=== PATIENT | female | born 1935 | race Asian ===

== ENCOUNTER 2016-11-03 00:08 | Observation (INO) | payer OTHER ==
[2016-11-03 00:13] VITALS: BMI 18.6
--- NOTE | 2016-11-03 00:14 | PDOC ---
History of Present Illness - General Chief Complaint: Respiratory Stated Complaint: FEVER/POST OP Time Seen by Provider: 11/03/16 00:14 History Source: Patient Exam Limitations: No Limitations - History of Present Illness Initial Comments: 11/03/16 00:19 This is a 81-year-old female comes in with her family for evaluation. Patient is status post angioplasty today. Patient called her primary care doctor As she had a temperature of 99.6 and her family felt like her 1 foot was cool. Patient denied any pain. Patient denied any headache, nausea, chest pain, shortness of breath, abdominal pain, fevers, chills, nausea, vomiting, diarrhea or any other complaints. Patient denied any pain in her leg other than at the angioplasty site or in her foot. PAST MEDICAL HISTORY: Hypertension, high cholesterol, peripheral vascular disease PAST SURGICAL HISTORY: no significant history FAMILY HISTORY: no pertinant history SOCIAL HISTORY: Pt lives with family and is employed. MEDICATIONS: reviewed ALLERGIES: As per nursing notes Review of Systems General: + fevers npo chills, no weakness, no weight loss HEENT: No change in vision. No sore throat,. No ear pain CardioVascular: No chest pain or shortness of breath Respiratory:No cough, or wheezing. Gastrointestinal: no nausea, vomitting, diarrhea or constipation, No rectal bleeding Genitourinary: No dysuria, hematuria, or frequency Musculoskeletal: No joint or muscle pain or swelling Neurologic: No headache, vertigo, dizziness or loss of consciousness Psychiatric: nor depression Skin: No rashes or easy bruising Endocrine: no increased thirst or abnormal weight change Allergic: no skin or latex allergy All other systems reviewed and normal Exam: General: Well-nourished well-developed individual, no acute distress HEENT: Throat: Normal, tonsils normal, no erythema or exudate Neck: Supple, no meningeal signs, no lymphadenopathy Eyes::Pupils equal reactive and round, extraocular motion intact Chest: Nontender to palpation Cardiac: S1-S2 normal, regular rate and rhythm, no murmurs rubs or gallops Respiratory: Lungs clear to auscultation bilateral Abdomen: Soft, nondistended, normal bowel sounds, nontender to palpation diffusely Extremities: Warm, dry, no cyanosis, clubbing, or edema, pulses 2+ bilateral dorsalis pedis and foot is well perfused. Skin: No rashes Neuro: Alert and oriented x3, nonfocal exam, grossly intact, normal gait Psych: Normal mood and affect 11/03/16 02:07 Patient's workup patient's workup shows a urinary tract infection, hyponatremia with sodium 128 and hypokalemia with a potassium of 3.3. Patient will be admitted to an observation bed overnight. She has received a liter of fluid already Patient will be given potassium Her urinary tract infection will be treated with ceftriaxone first dose will be given here in the emergency room Patient will be admitted to a observation bed. Past History - Past Medical History Allergies/Adverse Reactions: Allergies Allergy/AdvReac Type Severity Reaction Status Date / Time No Known Allergies Allergy Unverified 09/25/12 11:26 Home Medications: Ambulatory Orders Aspirin 81 mg PO DAILY 05/21/14 Metformin HCl 500 mg PO BID 11/03/16 Simvastatin 40 mg PO DAILY 11/03/16 Diabetes: Yes HTN: Yes - Psycho/Social/Smoking Cessation Hx Anxiety: No Suicidal Ideation: No Smoking History: Never smoked Hx Alcohol Use: No Substance Use Type: None *Physical Exam - Vital Signs Last Vital Signs Temp Pulse Resp BP Pulse Ox 98.4 F 57 L 18 135/62 97 11/03/16 00:09 11/03/16 00:09 11/03/16 00:09 11/03/16 00:09 11/03/16 00:09 ED Treatment Course - LABORATORY CBC & Chemistry Diagram: 11/03/16 00:33 11/03/16 00:33 *DC/Admit/Observation/Transfer Diagnosis at time of Disposition: Hyponatremia, Hypokalemia, Cystitis - Discharge Dispostion Condition at time of disposition: Stable Admit: Yes
[2016-11-03 01:34] LABS: BASOPHIL 0.7 % (0-2.0); EOSINOPHIL 0.1 % (0-4.5); MCH 30.9 pg (25.7-33.7); MEAN CELL VOLUME 90.9 fl (80-96); MEAN PLT VOLUME 7.6 fl (7.5-11.1); NEUTROPHILS 86.1 % (42.8-82.8); PLATELET COUNT 223 K/MM3 (134-434); RDW 14.1 % (11.6-15.6); URINE APPEARANCE SLCLOUDY; URINE BILIRUBIN NEGATIVE (NEGATIVE); URINE BLOOD NEGATIVE (NEGATIVE); URINE COLOR YELLOW; URINE GLUCOSE (UA) 3+ (NEGATIVE); URINE KETONE TRACE (NEGATIVE); URINE NITRITE NEGATIVE (NEGATIVE); URINE PROTEIN NEGATIVE (NEGATIVE); URINE UROBILINOGEN NEGATIVE E.U./dl (0.2-1.0); WHITE BLOOD COUNT 9.9 K/mm3 (4.0-10.0)
[2016-11-03 01:45] LABS: URINE LEUK ESTERASE 3+ (NEGATIVE)
[2016-11-03 01:48] LABS: URINE HYALINE CAST 4 /lpf; URINE MUCUS RARE; URINE RBC 1 /hpf (0-3); URINE WBC 12 /hpf (3-5)
[2016-11-03 01:51] LABS: ALBUMIN 3.4 g/dl (3.4-5.0); ANION GAP 12 (8-16); CALCIUM 8.3 mg/dL (8.5-10.1); CO2 27 mmol/L (21-32); CREATININE 0.8 mg/dL (0.55-1.02); GLUCOSE,RANDOM 219 mg/dL (74-106); SGOT/AST 11 U/L (15-37); SGPT/ALT 17 U/L (12-78)
[2016-11-03 01:53] LABS: ALK PHOS 52 U/L (45-117); BILIRUBIN,TOTAL 0.9 mg/dL (0.2-1.0); TOT PROT 6.2 g/dl (6.4-8.2)
[2016-11-03] MEDS ORDERED: CEFTRIAXONE 1 GM in DEXTROSE 5%-WATER - 50 ML IVPB ONE (02:10)
[2016-11-03] MEDS ORDERED: POTASSIUM CHLORIDE TABS 20 MEQ TABLET.ER (FP) PO ONE ×3 (02:12→22:58)
[2016-11-03] MEDS ORDERED: cefTRIAXone SODIUM 1 GM VIAL ONE (02:15)
[2016-11-03] MEDS ORDERED: SODIUM CHLORIDE 1,000 ML IV SCH ×3 (04:45→19:18)
--- NOTE | 2016-11-03 09:38 | HP ---
CHIEF COMPLAINT: Fever PCP: HISTORY OF PRESENT ILLNESS: This is a 81 year old female with a history of NIDDM , HTN, HLD, and PAD s/p right femoral angioplasty yesterday in Dr. Mclean's office. She reports that yesterday evening, she had a temp of 103 at home and felt that her leg was cold. She denies cough, chest pain, abdominal pain, leg pain, rashes, or any other symptoms. ER course was notable for: (1) WBC within normal limits at 9.9, T normal at 98.4 (2) Mild hypokalemia (3.3) (3) Hyponatremia (128) (4) UA with 12 WBCs Recent Travel: None Social History: Lives with in [place] Smoking: Never smoker Alcohol: None Family History: Non-contributory to this admission Allergies No Known Allergies Allergy (Unverified 09/25/12 11:26) HOME MEDICATIONS: Home Medications Medication Instructions Recorded Aspirin 81 mg PO DAILY 05/21/14 Enoxaparin [Lovenox -] 60 mg SQ BID 11/03/16 Metformin HCl 500 mg PO BID 11/03/16 Simvastatin 40 mg PO DAILY 11/03/16 REVIEW OF SYSTEMS CONSTITUTIONAL: Absent: Fever yesterday, none overnight. No diaphoresis, generalized weakness, malaise, loss of appetite, weight change HEENT: Absent: rhinorrhea, nasal congestion, throat pain, throat swelling, difficulty swallowing, mouth swelling, ear pain, eye pain, visual changes CARDIOVASCULAR: Leg "cold" last night, feels normal today. Absent: chest pain, syncope, palpitations, irregular heart rate, lightheadedness , peripheral edema RESPIRATORY: Absent: cough, shortness of breath, dyspnea with exertion, orthopnea, wheezing, stridor, hemoptysis GASTROINTESTINAL: Absent: abdominal pain, abdominal distension, nausea, vomiting, diarrhea, constipation, melena, hematochezia GENITOURINARY: Absent: dysuria, frequency, urgency, hesitancy, hematuria, flank pain, genital pain MUSCULOSKELETAL: Absent: myalgia, arthralgia, joint swelling, back pain, neck pain SKIN: Absent: rash, itching, pallor HEMATOLOGIC/IMMUNOLOGIC: Absent: easy bleeding, easy bruising, lymphadenopathy, frequent infections ENDOCRINE: Absent: unexplained weight gain, unexplained weight loss, heat intolerance, cold intolerance NEUROLOGIC: Absent: headache, focal weakness or paresthesias, dizziness, unsteady gait, seizure, mental status changes, bladder or bowel incontinence PSYCHIATRIC: Absent: anxiety, depression, suicidal or homicidal ideation, hallucinations. PHYSICAL EXAMINATION Vital Signs - 24 hr 11/03/16 11/03/16 11/03/16 04:02 04:46 04:47 Temperature 98.4 F Pulse Rate 52 L 52 L Respiratory 18 18 18 Rate Blood Pressure 99/35 89/61 106/38 O2 Sat by Pulse 99 100 Oximetry (%) 11/03/16 11/03/16 11/03/16 05:46 05:57 08:57 Temperature 98.3 F 98.3 F Pulse Rate 49 L Respiratory 18 18 16 Rate Blood Pressure 97/38 97/38 O2 Sat by Pulse 100 99 99 Oximetry (%) GENERAL: Awake, alert, and fully oriented, in no acute distress. HEAD: Normal with no signs of trauma. EYES: Pupils equal, round and reactive to light, extraocular movements intact, sclera anicteric, conjunctiva clear. No lid lag. EARS, NOSE, THROAT: Ears normal, nares patent, oropharynx clear without exudates. Moist mucous membranes. NECK: Normal range of motion, supple without lymphadenopathy, JVD, or masses. LUNGS: Breath sounds equal, clear to auscultation bilaterally. No wheezes, and no crackles. No accessory muscle use. HEART: Regular rate and rhythm, normal S1 and S2 without murmur, rub or gallop. ABDOMEN: Soft, nontender, not distended, normoactive bowel sounds, no guarding, no rebound, no masses. No hepatomegaly or splenomegaly. MUSCULOSKELETAL: Normal range of motion at all joints. No bony deformities or tenderness. No CVA tenderness. UPPER EXTREMITIES: 2+ pulses, warm, well-perfused. No cyanosis. No clubbing. No peripheral edema. LOWER EXTREMITIES: 1+ DP/PT pulses, warm, well-perfused. No calf tenderness. No peripheral edema. NEUROLOGICAL: Cranial nerves II-XII intact. Normal speech. Normal gait. PSYCHIATRIC: Cooperative. Good eye contact. Appropriate mood and affect. SKIN: Warm, dry, normal turgor, no rashes or lesions noted, normal capillary refill. ASSESSMENT/PLAN: 81 year old female POD #1 s/p femoral angioplasty with one episode of fever. Problem List - Problem (1) Cystitis Assessment/Plan: -Given Ceftriaxone x 1 in ED, continue Keflex -Send and follow up urine culture Code(s): N30.90 - CYSTITIS, UNSPECIFIED WITHOUT HEMATURIA (2) Hyponatremia Assessment/Plan: -Asymptomatic -Appears hypovolemic/dry -Send urine electrolytes, serum osmolality -Given NS x 1L -Hold diuretic until can follow up with PCP -Repeat today Code(s): E87.1 - HYPO-OSMOLALITY AND HYPONATREMIA (3) Hypokalemia Assessment/Plan: -Repleted -Repeat today Code(s): E87.6 - HYPOKALEMIA (4) Hypertension Assessment/Plan: -BP and HR both low-borderline overnight; hold Losartan and Atenolol/ Chlorthalidone today Code(s): I10 - ESSENTIAL (PRIMARY) HYPERTENSION (5) Diabetes Assessment/Plan: -Resume Metformin -Diabetic diet Code(s): E11.9 - TYPE 2 DIABETES MELLITUS WITHOUT COMPLICATIONS (6) DVT prophylaxis Assessment/Plan: -On Lovenox 60mg sq bid as outpatient; continue this Code(s): [id number] - Visit type - Emergency Visit Emergency Visit: Yes ED Registration Date: 11/03/16 Care time: The patient presented to the Emergency Department on the above date and was hospitalized for further evaluation of their emergent condition. - New Patient This patient is new to me today: Yes Date on this admission: 11/03/16 - Critical Care Critical Care patient: No
[2016-11-03] MEDS: ENOXAPARIN NA (PORCINE) 60 MG/0.6 ML DISP.SYRIN SQ SCH ×2 (09:39→21:04)
[2016-11-03] MEDS: ASPIRIN 81 MG CHEWABLE TABLETS PO SCH (09:40)
[2016-11-03] MEDS: metFORMIN HCL 500 MG TABLET (FP) PO SCH ×2 (09:40→21:04)
[2016-11-03] MEDS ORDERED: CEPHALEXIN MONOHYDRATE 500 MG CAPSULE (UD) PO SCH (10:00)
[2016-11-03] MEDS ORDERED: PATIENT'S OWN MEDICATION (NON-FORMULARY) (Simvastatin [Simvastatin] 40 MG) PO SCH (10:00)
[2016-11-03 10:09] LABS: BASOPHIL 0.5 % (0-2.0); EOSINOPHIL 0.7 % (0-4.5); MCH 31.4 pg (25.7-33.7); MCHC 34.1 g/dl (32.0-36.0); MEAN PLT VOLUME 6.8 fl (7.5-11.1); NEUTROPHILS 80.3 % (42.8-82.8); PLATELET COUNT 239 K/MM3 (134-434); RDW 13.5 % (11.6-15.6); WHITE BLOOD COUNT 7.3 K/mm3 (4.0-10.8)
[2016-11-03 10:38] LABS: ANION GAP 7 (8-16); CALCIUM 8.3 mg/dl (8.4-10.2); CO2 24 mmol/L (22-28); CREATININE 0.7 mg/dl (0.6-1.3); GLUCOSE,RANDOM 201 mg/dl (74-106); MAGNESIUM 1.7 mg/dL (1.8-2.4)
[2016-11-03] MEDS ORDERED: MAGNESIUM SULF 50% (8.12 MEQ/2 ML-1 GM VIAL) IVPB ONE (11:17)
[2016-11-03] MEDS: CEFTRIAXONE 1 GM in DEXTROSE 5%-WATER - 50 ML IVPB SCH (15:24)
[2016-11-03 16:33] LABS: URINE CREATININE 22.8 mg/dL (20-320)
[2016-11-03 18:11] LABS: ANION GAP 6 (8-16); CALCIUM 8.1 mg/dl (8.4-10.2); CO2 27 mmol/L (22-28); CREATININE 0.7 mg/dl (0.6-1.3); GLUCOSE,RANDOM 175 mg/dl (74-106)
[2016-11-03 18:15] LABS: URIC ACID 3.2 mg/dl (2.6-7.2)
[2016-11-03] MEDS ORDERED: ATORVASTATIN CA 20 MG TABLET (FP) PO SCH (22:00)
[2016-11-04 06:20] VITALS: BP 112/78; PULSE 72; TEMP 98
--- NOTE | 2016-11-04 07:46 | CONSULT ---
Consult - text type - Consultation Consultation Note: Renal Consult for Hyponatremia This is a 81 year old woman with PMhx of PVD, Hypertension, DM Typ 2, Hyperlipidemia who presented with lower abd/leg pain s/p angioplasty and found to have Na of 128. Pt without any AMS, confusion, lethargy or seizures. Denies excesive water intake at home. Was on thazide like diuretic at home. No N/V/D. No cough or sob. Started on IVF w/o intial improvement. No fever, chills, dysuria. PMhx: as above Allergies: NKDA Family hx: NC Social hx: Non-smoker ROS: as per HPI, all other pertinent ros negative Home Meds: Home Medications Medication Instructions Recorded Aspirin 81 mg PO DAILY 05/21/14 Enoxaparin [Lovenox -] 60 mg SQ BID 11/03/16 Metformin HCl 500 mg PO BID 11/03/16 Simvastatin 40 mg PO DAILY 11/03/16 Vital Signs Temperature 98.0 F 11/04/16 06:00 Pulse Rate 72 11/04/16 06:00 Respiratory Rate 20 11/04/16 06:00 Blood Pressure 112/78 11/04/16 06:00 O2 Sat by Pulse Oximetry (%) 98 11/04/16 06:19 Intake & Output 11/01/16 11/02/16 11/03/16 11/04/16 23:59 23:59 23:59 23:59 Intake Total 3507 913 Balance 3507 913 Weight 104 lb 15.993 oz Gen: NAD, awake and alert HEENT: NC/AT, Dry MM, No JVD CVS: RRR, No M/R Lungs: CTA, no rales or wheeze Abd: soft NT/ND Ext: No edema, clubbin or cyanosis. + heatoma on right LQ/Hip Neuro: AAOx3, no focal defects CBC, BMP 11/03/16 10:02 11/03/16 17:30 Current Medications Aspirin (Asa -) 81 mg PO DAILY [facility] Last Admin: 11/03/16 09:40 Dose: 81 mg Atorvastatin Calcium (Lipitor -) 20 mg PO HS [facility] Last Admin: 11/03/16 21:04 Dose: 20 mg Enoxaparin Sodium (Lovenox -) 60 mg SQ BID [facility] Last Admin: 11/03/16 21:04 Dose: 60 mg Ceftriaxone Sodium 1 gm/ (Dextrose) 50 mls @ 100 mls/hr IVPB DAILY [facility] Last Admin: 11/03/16 15:24 Dose: 100 mls/hr Sodium Chloride (Normal Saline -) 1,000 mls @ 83 mls/hr IV ASDIR [facility] Last Admin: 11/03/16 19:30 Dose: 83 mls/hr Metformin HCl (Glucophage -) 500 mg PO BID [facility] Last Admin: 11/03/16 21:04 Dose: 500 mg A/P 81 year old woman with PMhx of PVD, Hypertension, DM Typ 2, Hyperlipidemia who presented with lower abd/leg pain s/p angioplasty and found to have Na of 128. #Hyponatremia in setting of thiazide like diuretic likely hypovolemic hyponatremia in setting of diuretic pt with delyed but good response to isotonic saline AM labs pending Urine studies ordered but not colleted continue isotonic saline for now if Serum Na > 132 ok to be discharged off Chlorthalidone should have repeat labs in 2-3 days as outpatient #PVD s/p angioplasty with hematoma right groin Management as per vascular Sx #Hypetension BP at goal currently off meds d/c Chlorthalidone on discharge #Hypokalememia am labs pending supplament to keep K > 3.5 #Anemia trend cbc no acute indication for transfusion cbc ordered for this am #Cystitis/UTI f/u cultures Abx as per primary team Thank you for this referral Sheldon Alston DO
[2016-11-04 08:19] LABS: MCHC 33.8 g/dl (32.0-36.0); MEAN CELL VOLUME 91.7 fl (80-96); MEAN PLT VOLUME 7.8 fl (7.5-11.1); PLATELET COUNT 197 K/MM3 (134-434); RDW 13.3 % (11.6-15.6); WHITE BLOOD COUNT 6.9 K/mm3 (4.0-10.8)
[2016-11-04 08:27] LABS: ANION GAP 6 (8-16); CO2 25 mmol/L (22-28); CREATININE 0.5 mg/dl (0.6-1.3); GLUCOSE,RANDOM 126 mg/dl (74-106)
[2016-11-04 09:11] LABS: MAGNESIUM 1.9 mg/dL (1.8-2.4)
[2016-11-04] MEDS ORDERED: POTASSIUM CHLORIDE TABS 20 MEQ TABLET.ER (FP) PO ONE (10:00)
--- NOTE | 2016-11-04 10:05 | DS ---
Physical Exam: SUBJECTIVE: Patient seen and examined OBJECTIVE: Vital Signs Period Temp Pulse Resp BP Sys/Sims Pulse Ox Last 24 Hr 98.0 F-99.5 F 60-80 16-20 98-122/36-78 97-98 PHYSICAL EXAM GENERAL: The patient is awake, alert, and fully oriented, in no acute distress. HEAD: Normal with no signs of trauma. EYES: PERRL, extraocular movements intact, sclera anicteric, conjunctiva clear. ENT: Ears normal, nares patent, oropharynx clear without exudates, moist mucous membranes. NECK: Trachea midline, full range of motion, supple. LUNGS: Breath sounds equal, clear to auscultation bilaterally, no wheezes, no crackles, no accessory muscle use. HEART: Regular rate and rhythm, S1, S2 without murmur, rub or gallop. ABDOMEN: Soft, nontender, nondistended, normoactive bowel sounds, no guarding, no rebound, no hepatosplenomegaly, no masses. EXTREMITIES: 2+ pulses, warm, well-perfused, no edema. NEUROLOGICAL: Cranial nerves II through XII grossly intact. Normal speech, gait not observed. PSYCH: Normal mood, normal affect. SKIN: Warm, dry, normal turgor, no rashes or lesions noted. LABS Laboratory Results - last 24 hr 11/03/16 11/03/16 11/03/16 10:02 10:02 15:50 WBC 7.3 D RBC 3.17 L D Hgb 9.9 L D Hct 29.2 L D MCV 92.0 MCHC 34.1 RDW 13.5 Plt Count 239 MPV 6.8 L D Neutrophils % 80.3 D Lymphocytes % 10.9 D Monocytes % 7.6 Eosinophils % 0.7 D Basophils % 0.5 Sodium 127 L Potassium 3.7 Chloride 96 L Carbon Dioxide 24 Anion Gap 7 L BUN 10 D Creatinine 0.7 POC Glucometer Random Glucose 201 H D Uric Acid Calcium 8.3 L Magnesium 1.7 L Urine Creatinine 22.8 11/03/16 11/03/16 11/03/16 17:30 17:30 21:00 WBC RBC Hgb Hct MCV MCHC RDW Plt Count MPV Neutrophils % Lymphocytes % Monocytes % Eosinophils % Basophils % Sodium 132 L Cancelled Potassium 3.3 L Chloride 99 Carbon Dioxide 27 Anion Gap 6 L BUN 9 Creatinine 0.7 POC Glucometer 152 Random Glucose 175 H Uric Acid 3.2 D Calcium 8.1 L Magnesium Urine Creatinine 11/04/16 11/04/16 06:30 06:30 WBC 6.9 RBC 2.93 L Hgb 9.1 L Hct 26.9 L MCV 91.7 MCHC 33.8 RDW 13.3 Plt Count 197 MPV 7.8 D Neutrophils % Lymphocytes % Monocytes % Eosinophils % Basophils % Sodium 134 L Potassium 4.1 D Chloride 103 Carbon Dioxide 25 Anion Gap 6 L BUN 8 Creatinine 0.5 L D POC Glucometer Random Glucose 126 H D Uric Acid Calcium 8.0 L Magnesium 1.9 Urine Creatinine HOSPITAL COURSE: Date of Admission:11/03/16 Date of Discharge: 11/04/16 Discharge Summary Reason For Visit: HYPONATREMIA/HYPOKALEMIA/CYSTITIS Current Active Problems Cystitis (Acute) Diabetes (Chronic) Hypertension (Chronic) Condition: Stable - Instructions Diet, Activity, Other Instructions: 1. Rest and stay well-hydrated. 2. Continue all of your prescribed medications, with the following changes" -Add Keflex for treatment of UTI -Do not take Atenolol-Chlorthalidone until seen by Dr. Cobian next week and told to re-start it 3. Return here for recurrent fevers or any other concerning symptoms. Referrals: Rui Cobian MD [Staff Physician] - Ritika Mclean MD [Staff Physician] - - Home Medications Comprehensive Discharge Medication List: Ambulatory Orders Aspirin 81 mg PO DAILY 05/21/14 Enoxaparin [Lovenox -] 60 mg SQ BID 11/03/16 Metformin HCl 500 mg PO BID 11/03/16 Simvastatin 40 mg PO DAILY 11/03/16 Cephalexin [Keflex] 500 mg PO BID #6 capsule 11/04/16 Problem List - Problems (1) Cystitis Code(s): N30.90 - CYSTITIS, UNSPECIFIED WITHOUT HEMATURIA (2) Hyponatremia Code(s): E87.1 - HYPO-OSMOLALITY AND HYPONATREMIA (3) Hypokalemia Code(s): E87.6 - HYPOKALEMIA (4) Hypertension Code(s): I10 - ESSENTIAL (PRIMARY) HYPERTENSION (5) Diabetes Code(s): E11.9 - TYPE 2 DIABETES MELLITUS WITHOUT COMPLICATIONS (6) DVT prophylaxis Code(s): [id number] -
[2016-11-04] MEDS: CEFTRIAXONE 1 GM in DEXTROSE 5%-WATER - 50 ML IVPB SCH (10:46)
[2016-11-04] MEDS: metFORMIN HCL 500 MG TABLET (FP) PO SCH (10:46)
[2016-11-04] MEDS: ASPIRIN 81 MG CHEWABLE TABLETS PO SCH (10:46)
[2016-11-04] MEDS: ENOXAPARIN NA (PORCINE) 60 MG/0.6 ML DISP.SYRIN SQ SCH (10:46)
== END 2016-11-04 11:15 | disposition home or self-care (01) ==
LOC: FER 00:08 → FM/S 03:22
PROVIDERS: ADMIT Internal Medicine; ATTEND Registered Nurse Emergency
PROC: 3E03329 Introduction of Other Anti-infective into Peripheral Vein, Percutaneous Approach (ICD-10-PCS; principal; 2016-11-03)
PROC: 3E033GC Introduction of Other Therapeutic Substance into Peripheral Vein, Percutaneous Approach (ICD-10-PCS; 2016-11-03)
PROC: 3E013GC Introduction of Other Therapeutic Substance into Subcutaneous Tissue, Percutaneous Approach (ICD-10-PCS; 2016-11-03)
DX: E87.1 Hypo-osmolality and hyponatremia (principal); E87.6 Hypokalemia; N30.90 Cystitis, unspecified without hematuria; I10 Essential (primary) hypertension; D64.9 Anemia, unspecified; E11.9 Type 2 diabetes mellitus without complications; E78.5 Hyperlipidemia, unspecified; I73.9 Peripheral vascular disease, unspecified; Z98.61 Coronary angioplasty status; Z79.82 Long term (current) use of aspirin; Z79.84 Long term (current) use of oral hypoglycemic drugs
CPT/HCPCS: 36415; 80048; 80053; 81003; 81015; 82533; 82570; 83735; 83930; 84443; 84550; 85025; 85027; 87040; 87086; 99285-25; G0378

== ENCOUNTER 2017-03-07 10:43 | Inpatient (IN) | payer OTHER ==
[2017-03-06 09:28] VITALS: BMI 17.9
[2017-03-07] MEDS ORDERED: LIDOCAINE HCL 0.5%, 5 MG/ML (50mL SDVIAL) ONE (12:11)
[2017-03-07] MEDS ORDERED: HEPARIN NA (PORCINE) 5,000 UNITS/ML 1ML VIAL ONE (12:11)
[2017-03-07] MEDS ORDERED: ceFAZolin SODIUM 1 GM VIAL ONE (12:12)
[2017-03-07] MEDS ORDERED: SUCCINYLCHOLINE CHLORIDE 200 MG/10 ML VIAL ONE (12:32)
[2017-03-07] MEDS ORDERED: PROPOFOL 20 ML ONE (12:32)
[2017-03-07] MEDS ORDERED: MIDAZOLAM HCL 2 MG/2 ML SINGLE DOSE VIAL ONE ×2 (12:32→15:00)
[2017-03-07] MEDS ORDERED: ROCURONIUM BROMIDE 50 MG/5 ML VIAL ONE (12:32)
[2017-03-07] MEDS ORDERED: DEXAMETHASONE SOD PHOSPHATE 4 MG/1 ML VIAL ONE (12:35)
[2017-03-07] MEDS ORDERED: PHENYLEPHRINE HCL 10 MG/1 ML SINGLE DOSE VIAL ONE (12:35)
[2017-03-07] MEDS ORDERED: ePHEDrine SULFATE 50 MG/1 ML AMPULE ONE (12:38)
[2017-03-07] MEDS ORDERED: SODIUM CHLORIDE 0.9% P/F 10 ML VIAL IJ ONE (12:39)
[2017-03-07] MEDS ORDERED: BUPIVACAINE HCL/PF 0.5% (5MG/ML) 10 ML VIAL ONE (14:00)
[2017-03-07] MEDS ORDERED: LIDOCAINE HCL 1%, 10 MG/ML (20ML VIAL) ONE (14:00)
[2017-03-07] MEDS ORDERED: ceFAZolin SODIUM 1 GM VIAL IVPB ONE (14:02)
[2017-03-07] MEDS ORDERED: BUPIVACAINE HCL/PF 0.5% (5MG/ML) 10 ML VIAL IJ ONE (14:07)
[2017-03-07] MEDS ORDERED: LIDOCAINE HCL 1%, 10 MG/ML (20ML VIAL) INF ONE ×2 (14:07)
[2017-03-07] MEDS ORDERED: BACITRACIN 50,000 UNITS VIAL NR ONE (14:23)
[2017-03-07] MEDS ORDERED: LACTATED RINGERS SOLUTION 1,000 ML IV SCH (16:15)
[2017-03-07] MEDS ORDERED: HYDROmorphone HCL CARPU-JECT 1 MG/1 ML DISP.SYRIN IVPB PRN (16:15)
--- NOTE | 2017-03-07 16:19 | HP ---
History & Physical Update - History History: No Change - Physical Physical: No Change - Assessment Assessment: No Change - Plan Plan: No Change
--- NOTE | 2017-03-07 16:21 | OP ---
Operative Note - Note: Operative Date: 03/07/17 Pre-Operative Diagnosis: RLE claudication, occluded SFA stent Operation: Right femoral-popliteal bypass, angiogram, popliteal angioplasty Implants: gortex graft Post-Operative Diagnosis: Same as Pre-op Surgeon: Ritika Mclean Training Engineer: Chelsea Vasquez Anesthesiologist/MOTORIZED SQUAD SERGEANT: Michael Mckee Anesthesia: MAC Estimated Blood Loss (mls): 100 Operative Report Dictated: Yes
[2017-03-07] MEDS ORDERED: ACETAMINOPHEN 325 MG TABLET (FP) PO PRN (16:59)
[2017-03-07] MEDS ORDERED: oxyCODONE HCL 5 MG TABLET PO PRN (16:59)
[2017-03-07 19:32] LABS: BASOPHIL 0.3 % (0-2.0); EOSINOPHIL 0.2 % (0-4.5); MCH 29.9 pg (25.7-33.7); MCHC 32.5 g/dl (32.0-36.0); MEAN CELL VOLUME 92.2 fl (80-96); MEAN PLT VOLUME 7.4 fl (7.5-11.1); NEUTROPHILS 87.6 % (42.8-82.8); PLATELET COUNT 300 K/MM3 (134-434); RDW 16.1 % (11.6-15.6); WHITE BLOOD COUNT 7.9 K/mm3 (4.0-10.0)
[2017-03-07] MEDS: INSULIN SLIDING SCALE (NOVOLOG) 1 VIAL SQ SCH ×2 (19:46→21:35)
[2017-03-07 19:55] LABS: TROPONIN I 0.14 ng/ml (0.00-0.05)
--- NOTE | 2017-03-07 20:54 | CONSULT ---
Consult Consult Specialty:: Pulm/CCM Reason for Consultation:: Rt leg claudication s/p Fem-Pop revision - History of Present Illness Chief Complaint: Rt LE discomfort History of Present Illness: 81yow with PMHx of NIDDM, HTN, HLD and PAD s/p multiple bilat femoral angioplasty procedures most recent Lt Fem-Pop who is admitted with RLE claudication 2/2 occluded RLE stents( 11/03) with plan for Rt Fem-Pop bypass. She is now admitted to ICU for post-op care Rec'd in ICU A+O x2 HR 70's, BP 142/60, O2 sat 100% on 2L NC. Rt groin dressing with sandbag weight, removed after 4hrs. Dressing with scant amt serosang rainage. Jake wrap dressing intact. Toes warm with faintly palpable DP pulse. She c/o of slight numbness in Lt foot but no c/o on right. - History Source History Provided By: Patient, Medical Record - Past Medical History Cardio/Vascular: Yes: HTN, Hyperlipdemia, Other (PAD) Endocrine: Yes: Diabetes Mellitus - Alcohol/Substance Use Hx Alcohol Use: No - Smoking History Smoking history: Never smoked - Social History Usual Living Arrangement: With Spouse ADL: Independent Home Medications - Allergies Allergies/Adverse Reactions: Allergies Allergy/AdvReac Type Severity Reaction Status Date / Time No Known Allergies Allergy Unverified 03/07/17 11:30 - Home Medications Home Medications: Ambulatory Orders Aspirin 81 mg PO DAILY 05/21/14 Metformin HCl 500 mg PO DAILY 11/03/16 Simvastatin 40 mg PO DAILY 11/03/16 Clopidogrel Bisulfate [Plavix -] 75 mg PO DAILY 03/07/17 Family Disease History - Family Disease History Family History: Unremarkable Review of Systems - Review of Systems Constitutional: reports: No Symptoms Cardiovascular: reports: Other (RLE claudication) Physical Exam Vital Signs: Vital Signs Temperature 97.5 F L 03/07/17 20:00 Pulse Rate 96 H 03/07/17 20:00 Respiratory Rate 18 03/07/17 20:37 Blood Pressure 140/78 03/07/17 20:00 O2 Sat by Pulse Oximetry (%) 100 03/07/17 20:37 Constitutional: Yes: No Distress, Calm, Thin Eyes: Yes: Other (Strabismus) HENT: Yes: WNL, Normocephalic Neck: Yes: WNL, Supple Cardiovascular: Yes: Regular Rate and Rhythm, S1, S2 Respiratory: Yes: Regular, On Nasal O2 Gastrointestinal: Yes: Normal Bowel Sounds, Soft Renal/: Yes: WNL Extremities: Yes: Other (Some mottling and bruising in LLE) Edema: LLE: Trace, RLE: Trace Integumentary: Yes: Bruising Wound/Incision: Yes: Clean/Dry, Dressing Dry and Intact, Other (Groin dressing and jake wrap in place) Neurological: Yes: Alert, Oriented ...Motor Strength: WNL Psychiatric: Yes: Alert, Oriented Labs: CBC, BMP 03/07/17 19:00 CBC,CMP WBC 7.9 K/mm3 (4.0-10.0) 03/07/17 19:00 RBC 3.32 M/mm3 (3.60-5.2) L 03/07/17 19:00 Hgb 9.9 GM/dL (10.7-15.3) L D 03/07/17 19:00 Hct 30.6 % (32.4-45.2) L 03/07/17 19:00 MCV 92.2 fl (80-96) 03/07/17 19:00 MCH 29.9 pg (25.7-33.7) 03/07/17 19:00 MCHC 32.5 g/dl (32.0-36.0) 03/07/17 19:00 RDW 16.1 % (11.6-15.6) H D 03/07/17 19:00 Plt Count 300 K/MM3 (134-434) D 03/07/17 19:00 MPV 7.4 fl (7.5-11.1) L 03/07/17 19:00 Neutrophils % 87.6 % (42.8-82.8) H 03/07/17 19:00 Lymphocytes % 9.7 % (8-40) D 03/07/17 19:00 Monocytes % 2.2 % (3.8-10.2) L 03/07/17 19:00 Eosinophils % 0.2 % (0-4.5) D 03/07/17 19:00 Basophils % 0.3 % (0-2.0) 03/07/17 19:00 POC Glucometer 145 UNITS (()) 03/07/17 17:48 Creatine Kinase 78 IU/L (26-192) 03/07/17 19:00 Troponin I 0.14 ng/ml (0.00-0.05) H 03/07/17 19:00 Current Medications Generic Name Dose Route Start Last Admin Trade Name Freq PRN Reason Stop Dose Admin Acetaminophen 325 mg 03/07/17 16:58 Tylenol - PO 03/10/17 16:57 Q4H PRN PAIN Acetaminophen 650 mg 03/07/17 16:59 Tylenol - PO Q6H PRN PAIN Atorvastatin Calcium 20 mg 03/07/17 22:00 Lipitor - PO HS [facility] Fentanyl 25 mcg 03/07/17 16:13 Sublimaze Injection - IVPUSH 03/10/17 16:14 [id number] PRN PAIN Hydromorphone HCl 1 mg 03/07/17 16:15 Dilaudid Injection - IVPB Q6H PRN SEVERE PAIN Lactated Ringer's 1,000 mls @ 100 mls/hr 03/07/17 16:15 03/07/17 18:00 Lactated Ringers Solution IV 0 mls ASDIR [facility] Administration Insulin Aspart 1 vial 03/07/17 16:30 03/07/17 19:46 Novolog Vial Sliding Scale - SQ Not Given ACHS [facility] Protocol Losartan Potassium 50 mg 03/08/17 07:00 Cozaar - PO AM [facility] Oxycodone HCl 5 mg 03/07/17 16:58 Roxicodone - PO Q4H PRN PAIN LEVEL 1-5 Oxycodone HCl 10 mg 03/07/17 16:59 Roxicodone - PO Q6H PRN PAIN LEVEL 6-10 Last Vital Signs Temp Pulse Resp BP Pulse Ox 97.5 F L 96 H 18 140/78 100 03/07/17 20:00 03/07/17 20:00 03/07/17 20:37 03/07/17 20:00 03/07/17 20:37 Problem List - Problems (1) Diabetes Code(s): E11.9 - TYPE 2 DIABETES MELLITUS WITHOUT COMPLICATIONS (2) Hypertension Code(s): I10 - ESSENTIAL (PRIMARY) HYPERTENSION (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 She is admitted to ICU for post-op care. Plan: -Post -op management as per surgical team -Bedrest -Pedal pulse check q2 -Monitor Rt groin site for bleeding/hematoma -HD monitor -Cont antihypertensives and statins -Restart aspirin and Lovenox as per surgical team -Insulin sliding scale -Pain meds prn -Advance diet as armando Tisha Baca, ACNP 35mins
[2017-03-07] MEDS: ATORVASTATIN CA 20 MG TABLET (FP) PO SCH (21:33)
[2017-03-07] MEDS: oxyCODONE HCL 5 MG TABLET PO PRN (23:59)
[2017-03-08 06:02] LABS: BASOPHIL 0.3 % (0-2.0); EOSINOPHIL 0.1 % (0-4.5); MCH 29.8 pg (25.7-33.7); MEAN CELL VOLUME 87.7 fl (80-96); MEAN PLT VOLUME 7.4 fl (7.5-11.1); NEUTROPHILS 78.9 % (42.8-82.8); PLATELET COUNT 304 K/MM3 (134-434); RDW 15.5 % (11.6-15.6); WHITE BLOOD COUNT 7.8 K/mm3 (4.0-10.0)
[2017-03-08] MEDS: INSULIN SLIDING SCALE (NOVOLOG) 1 VIAL SQ SCH ×4 (06:34→21:36)
[2017-03-08] MEDS: LOSARTAN POTASSIUM 50 MG TABLET (FP) PO SCH (06:37)
[2017-03-08 06:48] LABS: ALBUMIN 2.7 g/dl (3.4-5.0); ALK PHOS 54 U/L (45-117); ANION GAP 7 (8-16); BILIRUBIN,TOTAL 1.1 mg/dL (0.2-1.0); CO2 27 mmol/L (21-32); CREATININE 0.5 mg/dL (0.55-1.02); GLUCOSE,RANDOM 114 mg/dL (74-106); SGOT/AST 7 U/L (15-37); SGPT/ALT 13 U/L (12-78); TOT PROT 5.4 g/dl (6.4-8.2)
[2017-03-08] MEDS ORDERED: PT OWN MED DRAWER 7, Y5N ONE (10:08)
--- NOTE | 2017-03-08 10:13 | PN ---
Progress Note, Physician History of Present Illness: Reports dizziness which started this morning. Also reports numbness in left foot which started this morning. Denies pain in surgical leg. Denies CP, SOB, abd pain, N/V. Eating breakfast. - Current Medication List Current Medications: Active Medications Acetaminophen (Tylenol -) 325 mg PO Q4H PRN PRN Reason: PAIN Stop: 03/10/17 16:57 Acetaminophen (Tylenol -) 650 mg PO Q6H PRN PRN Reason: PAIN Atorvastatin Calcium (Lipitor -) 20 mg PO HS [facility] Last Admin: 03/07/17 21:33 Dose: 20 mg Fentanyl (Sublimaze Injection -) 25 mcg IVPUSH [id number] PRN PRN Reason: PAIN Stop: 03/10/17 16:14 Hydromorphone HCl (Dilaudid Injection -) 1 mg IVPB Q6H PRN PRN Reason: SEVERE PAIN Lactated Ringer's (Lactated Ringers Solution) 1,000 mls @ 100 mls/hr IV ASDIR [facility] Last Admin: 03/07/17 18:00 Dose: 0 mls Insulin Aspart (Novolog Vial Sliding Scale -) 1 vial SQ ACHS [facility] PRN Reason: Protocol Last Admin: 03/08/17 06:34 Dose: Not Given Losartan Potassium (Cozaar -) 50 mg PO AM [facility] Last Admin: 03/08/17 06:37 Dose: 50 mg Oxycodone HCl (Roxicodone -) 5 mg PO Q4H PRN PRN Reason: PAIN LEVEL 1-5 Last Admin: 03/07/17 23:59 Dose: 5 mg Oxycodone HCl (Roxicodone -) 10 mg PO Q6H PRN PRN Reason: PAIN LEVEL 6-10 - Objective Vital Signs: Vital Signs Temperature 97.8 F 03/08/17 02:00 Pulse Rate 83 03/08/17 08:00 Respiratory Rate 20 03/08/17 08:00 Blood Pressure 133/57 03/08/17 08:00 O2 Sat by Pulse Oximetry (%) 100 03/07/17 20:37 Constitutional: Yes: No Distress, Calm Neck: Yes: Supple Cardiovascular: Yes: Regular Rate and Rhythm Respiratory: Yes: CTA Bilaterally Gastrointestinal: Yes: Normal Bowel Sounds, Soft Extremities: Yes: Other (RLE: dressings w/ mild serosanguinous drainage, no hematoma or edema, 2+ PT pulse, foot warm LLE: (+) ecchymosis along leg and foot , (+) DP/Pt doppler signals, foot warm, no sensorimotor deficits) Labs: CBC, BMP 03/08/17 05:00 03/08/17 05:00 Assessment/Plan PAD w/ severe claudication One day s/p Rt leg fem-pop bypass. Vascular check q4h. PT eval. OOB with assistance. Weight bearing as tolerated. Acute blood loss anemia: H&H dropped from 9.9/30.6 to 8.1/23.9. Complains of dizziness. Vitals stable. Most likely due to intra-operative blood loss. No evidence of bleeding post-op. Will order 1 unit PRBC. DM II: Accuchecks. Insulin sliding scale. HTN: Continue home meds. HLD: Continue home meds. DVT ppx: SCD b/l. Will hold off on restarting antiplatelets and lovenox until H& H trends up. GI ppx: Protonix.
[2017-03-08] MEDS ORDERED: LACTATED RINGERS SOLUTION 1,000 ML IV SCH (10:21)
[2017-03-08] MEDS ORDERED: PANTOPRAZOLE 40 MG TABLET (FP) PO ONE (11:00)
--- NOTE | 2017-03-08 11:09 | PN ---
Teaching Attending Note Name of Resident: Vinny Valverde ATTENDING PHYSICIAN STATEMENT I saw and evaluated the patient. I reviewed the resident's note and discussed the case with the resident. I agree with the resident's findings and plan as documented. SUBJECTIVE: Patient seen and examined in the ICU. Awake and alert. Pain in LE is controlled. Noted anemia. No obvious bleeding. No CP or SOB. Currently on no antiplatelet or AC. Intake & Output 03/05/17 03/06/17 03/07/17 03/08/17 23:59 23:59 23:59 23:59 Intake Total 2750 1200 Output Total 1900 800 Balance 850 400 Weight 92 lb 92 lb 104 lb Last Vital Signs Temp Pulse Resp BP Pulse Ox 98.5 F 76 19 131/42 100 03/08/17 10:00 03/08/17 10:41 03/08/17 10:00 03/08/17 10:00 03/08/17 10:41 Active Medications Acetaminophen (Tylenol -) 325 mg PO Q4H PRN PRN Reason: PAIN Stop: 03/10/17 16:57 Acetaminophen (Tylenol -) 650 mg PO Q6H PRN PRN Reason: PAIN Atorvastatin Calcium (Lipitor -) 20 mg PO HS [facility] Last Admin: 03/07/17 21:33 Dose: 20 mg Fentanyl (Sublimaze Injection -) 25 mcg IVPUSH [id number] PRN PRN Reason: PAIN Stop: 03/10/17 16:14 Hydromorphone HCl (Dilaudid Injection -) 1 mg IVPB Q6H PRN PRN Reason: SEVERE PAIN Lactated Ringer's (Lactated Ringers Solution) 1,000 mls @ 75 mls/hr IV ASDIR [facility] Insulin Aspart (Novolog Vial Sliding Scale -) 1 vial SQ ACHS [facility] PRN Reason: Protocol Last Admin: 03/08/17 06:34 Dose: Not Given Losartan Potassium (Cozaar -) 50 mg PO AM [facility] Last Admin: 03/08/17 06:37 Dose: 50 mg Oxycodone HCl (Roxicodone -) 5 mg PO Q4H PRN PRN Reason: PAIN LEVEL 1-5 Last Admin: 03/07/17 23:59 Dose: 5 mg Oxycodone HCl (Roxicodone -) 10 mg PO Q6H PRN PRN Reason: PAIN LEVEL 6-10 Pantoprazole Sodium (Protonix -) 40 mg PO DAILY [facility] Constitutional: Yes: No Distress, Awake and alert Eyes: Yes: Other (Strabismus) HENT: Yes: WNL, Normocephalic Neck: Yes: WNL, Supple Cardiovascular: Yes: Regular Rate and Rhythm, S1, S2 Respiratory: Yes: Regular, On Nasal O2 Gastrointestinal: Yes: Normal Bowel Sounds, Soft Renal/: Yes: WNL Extremities: Yes: Other (Some bruising in LLE) Edema: LLE: Trace, RLE: Trace Integumentary: Yes: Bruising Wound/Incision: Yes: Clean/Dry, Dressing Dry and Intact, Other (Groin dressing and ludy wrap in place) Neurological: Yes: Alert, Oriented ...Motor Strength: WNL Psychiatric: Yes: Alert, Oriented Labs: Laboratory Results - last 24 hr 03/07/17 03/07/17 03/07/17 10:56 10:56 12:03 WBC RBC Hgb Hct MCV MCH MCHC RDW Plt Count MPV Neutrophils % Lymphocytes % Monocytes % Eosinophils % Basophils % Sodium Potassium Chloride Carbon Dioxide Anion Gap BUN Creatinine Creat Clearance w eGFR POC Glucometer 147 Random Glucose Calcium Total Bilirubin AST ALT Alkaline Phosphatase Creatine Kinase Troponin I Total Protein Albumin Blood Type B POSITIVE B POSITIVE Antibody Screen Negative Crossmatch See Detail Crossmatch IS Only See Detail 03/07/17 03/07/17 03/07/17 17:48 19:00 19:00 WBC 7.9 RBC 3.32 L Hgb 9.9 L D Hct 30.6 L MCV 92.2 MCH 29.9 MCHC 32.5 RDW 16.1 H D Plt Count 300 D MPV 7.4 L Neutrophils % 87.6 H Lymphocytes % 9.7 D Monocytes % 2.2 L Eosinophils % 0.2 D Basophils % 0.3 Sodium Potassium Chloride Carbon Dioxide Anion Gap BUN Creatinine Creat Clearance w eGFR POC Glucometer 145 Random Glucose Calcium Total Bilirubin AST ALT Alkaline Phosphatase Creatine Kinase 78 Troponin I 0.14 H Total Protein Albumin Blood Type Antibody Screen Crossmatch Crossmatch IS Only 03/07/17 03/08/17 03/08/17 21:33 05:00 05:00 WBC 7.8 RBC 2.72 L Hgb 8.1 L D Hct 23.9 L D MCV 87.7 MCH 29.8 MCHC 34.0 RDW 15.5 Plt Count 304 MPV 7.4 L Neutrophils % 78.9 Lymphocytes % 11.6 Monocytes % 9.1 D Eosinophils % 0.1 Basophils % 0.3 Sodium 142 D Potassium 4.8 D Chloride 108 H D Carbon Dioxide 27 Anion Gap 7 L BUN 12 Creatinine 0.5 L D Creat Clearance w eGFR > 60 POC Glucometer [phone] Random Glucose 114 H D Calcium 8.0 L Total Bilirubin 1.1 H D AST 7 L D ALT 13 D Alkaline Phosphatase 54 Creatine Kinase Troponin I Total Protein 5.4 L Albumin 2.7 L D Blood Type Antibody Screen Crossmatch Crossmatch IS Only 03/08/17 03/08/17 05:00 05:15 WBC RBC Hgb Hct MCV MCH MCHC RDW Plt Count MPV Neutrophils % Lymphocytes % Monocytes % Eosinophils % Basophils % Sodium Potassium Chloride Carbon Dioxide Anion Gap BUN Creatinine Creat Clearance w eGFR POC Glucometer [phone] Random Glucose Calcium Total Bilirubin AST ALT Alkaline Phosphatase Creatine Kinase Troponin I 0.16 H Total Protein Albumin Blood Type Antibody Screen Crossmatch Crossmatch IS Only Problem List - Problems (1) Diabetes Code(s): E11.9 - TYPE 2 DIABETES MELLITUS WITHOUT COMPLICATIONS (2) Hypertension Code(s): I10 - ESSENTIAL (PRIMARY) HYPERTENSION (3) 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
--- NOTE | 2017-03-08 12:32 | PN ---
Progress Note (short form) - Note Progress Note: Anesthesia POD#1 S/P FEm-Pop Bypass under MAC VSS,food is advanced,no N/V,pain is under control No anesthetic complications seen. Kimberly Gandara MD.
--- NOTE | 2017-03-08 12:46 | CONSULT ---
Consultation: REQUESTING PROVIDER: HISTORY OF PRESENT ILLNESS: 81 yo F with h/o of HTN, HLD, NIDDM, and PAD s/p multiple BL femoral angioplasty procedures with recent L femoral popliteal angioplasty who initially presented with claudication of RLE d/t occluded RLE stents (11/03). She is post op day #1 R femoral popliteal bypass here in ICU for post op monitoring and care. No acute events overnight. On presentation this AM sitting comfortably in bed eating breakfast. No complaints or concerns this AM. Endorses LLE numbness/ tingling of two days duration. Denies fevers/chills, chest pain, sob, lightheadedness, N/V, abdominal pain, constipation, diarrhea. Patient afebrile , and hemodynamically stable on 2 L NC. Rt groin dressing is in place c/d/i with no obvious signs of bleeding, infection, or hematoma formation. Jake wrap present over right lower ext. Pt. with BL LE doppler pulses with no overlying skin changes. Pain well controlled with Oxycodone, Fentanyl, and Tylenol. REVIEW OF SYSTEMS: CONSTITUTIONAL: Absent: fever, chills, diaphoresis, generalized weakness, malaise, loss of appetite, weight change HEENT: Absent: rhinorrhea, nasal congestion, throat pain, throat swelling, difficulty swallowing, mouth swelling, ear pain, eye pain, visual changes CARDIOVASCULAR: + Periperhal edema. Absent: chest pain, syncope, palpitations, irregular heart rate, lightheadedness RESPIRATORY: Absent: cough, shortness of breath, dyspnea with exertion, orthopnea, wheezing, stridor, hemoptysis GASTROINTESTINAL: Absent: abdominal pain, abdominal distension, nausea, vomiting, diarrhea, constipation, melena, hematochezia GENITOURINARY: Absent: dysuria, frequency, urgency, hesitancy, hematuria, flank pain, genital pain MUSCULOSKELETAL: Absent: myalgia, arthralgia, joint swelling, back pain, neck pain SKIN: Absent: rash, itching, pallor HEMATOLOGIC/IMMUNOLOGIC: Absent: easy bleeding, easy bruising, lymphadenopathy, frequent infections ENDOCRINE: Absent: unexplained weight gain, unexplained weight loss, heat intolerance, cold intolerance NEUROLOGIC: + Parasthesias. Absent: headache, focal weakness, dizziness, unsteady gait, seizure, mental status changes, bladder or bowel incontinence PSYCHIATRIC: Absent: anxiety, depression, suicidal or homicidal ideation, hallucinations. PHYSICAL EXAMINATION Vital Signs - 24 hr 03/07/17 03/07/17 03/07/17 16:07 16:20 16:35 Temperature 98.0 F Pulse Rate 68 70 68 Respiratory 12 16 16 Rate Blood Pressure 137/53 145/61 141/61 O2 Sat by Pulse 97 100 100 Oximetry (%) 03/07/17 03/07/17 03/07/17 16:50 17:05 17:20 Temperature Pulse Rate 67 70 62 Respiratory 14 14 16 Rate Blood Pressure 155/62 165/66 164/62 O2 Sat by Pulse 100 100 100 Oximetry (%) 03/07/17 03/07/17 03/07/17 17:35 17:50 18:10 Temperature 98.2 F Pulse Rate 72 70 72 Respiratory 16 14 16 Rate Blood Pressure 161/64 160/59 162/70 O2 Sat by Pulse 100 100 Oximetry (%) 03/07/17 03/07/17 03/07/17 18:31 18:35 20:00 Temperature 98 F 97.5 F L Pulse Rate 66 96 H Respiratory 18 18 Rate Blood Pressure 150/60 140/78 O2 Sat by Pulse 100 Oximetry (%) 03/07/17 03/07/17 03/08/17 20:37 22:00 00:11 Temperature 97.5 F L Pulse Rate 76 66 Respiratory 18 20 15 Rate Blood Pressure 128/52 106/59 O2 Sat by Pulse 100 Oximetry (%) 03/08/17 03/08/17 03/08/17 02:00 06:00 08:00 Temperature 97.8 F Pulse Rate 67 67 83 Respiratory 17 13 20 Rate Blood Pressure 132/57 124/95 133/57 O2 Sat by Pulse Oximetry (%) 03/08/17 03/08/17 03/08/17 10:00 10:41 12:36 Temperature 98.5 F Pulse Rate 66 76 71 Respiratory 19 21 Rate Blood Pressure 131/42 115/51 O2 Sat by Pulse 100 100 Oximetry (%) GENERAL: Awake, alert, and fully oriented, in no acute distress. HEAD: Normal with no signs of trauma. EYES: Pupils equal, round and reactive to light, sclera anicteric, conjunctiva clear. EARS, NOSE, THROAT: Ears normal, nares patent, oropharynx clear without exudates. Moist mucous membranes. NECK: Normal range of motion, supple without lymphadenopathy, JVD, or masses. LUNGS: Breath sounds equal, clear to auscultation bilaterally. No wheezes, and no crackles. No accessory muscle use. HEART: Regular rate and rhythm, normal S1 and S2 without murmur, rub or gallop. ABDOMEN: Soft, nontender, not distended, normoactive bowel sounds, no guarding, no rebound, no masses. No hepatomegaly or splenomegaly. UPPER EXTREMITIES: 2+ pulses, warm, well-perfused. No cyanosis. No clubbing. Cap refill <2 seconds.No peripheral edema LOWER EXTREMITIES:R sided groin dressing in place c/d/i. Absent evidence of drainage and hematoma formation. Absent evidence of active bleeding. Jake wrap bandage present over right LE. LE 1+ pitting edema. Posterior tibial and dorsal pedal pulses faintly palpable. + Symmetric Doppler of BL Pedal pulses. No calf tenderness. BL LE proprioception intact. Absent overlying skin changes, redness, or warmth. Well perfused. NEUROLOGICAL: Gait not assessed. Normal speech. PSYCHIATRIC: Cooperative. Good eye contact. Appropriate mood and affect. SKIN: Warm, dry, normal turgor, no rashes or lesions noted. Laboratory Results - last 24 hr 03/07/17 03/07/17 03/07/17 10:56 10:56 12:03 WBC RBC Hgb Hct MCV MCH MCHC RDW Plt Count MPV Neutrophils % Lymphocytes % Monocytes % Eosinophils % Basophils % Sodium Potassium Chloride Carbon Dioxide Anion Gap BUN Creatinine Creat Clearance w eGFR POC Glucometer 147 Random Glucose Calcium Total Bilirubin AST ALT Alkaline Phosphatase Creatine Kinase Troponin I Total Protein Albumin Blood Type B POSITIVE B POSITIVE Antibody Screen Negative Crossmatch See Detail See Detail Crossmatch IS Only See Detail 03/07/17 03/07/17 03/07/17 17:48 19:00 19:00 WBC 7.9 RBC 3.32 L Hgb 9.9 L D Hct 30.6 L MCV 92.2 MCH 29.9 MCHC 32.5 RDW 16.1 H D Plt Count 300 D MPV 7.4 L Neutrophils % 87.6 H Lymphocytes % 9.7 D Monocytes % 2.2 L Eosinophils % 0.2 D Basophils % 0.3 Sodium Potassium Chloride Carbon Dioxide Anion Gap BUN Creatinine Creat Clearance w eGFR POC Glucometer 145 Random Glucose Calcium Total Bilirubin AST ALT Alkaline Phosphatase Creatine Kinase 78 Troponin I 0.14 H Total Protein Albumin Blood Type Antibody Screen Crossmatch Crossmatch IS Only 03/07/17 03/08/17 03/08/17 21:33 05:00 05:00 WBC 7.8 RBC 2.72 L Hgb 8.1 L D Hct 23.9 L D MCV 87.7 MCH 29.8 MCHC 34.0 RDW 15.5 Plt Count 304 MPV 7.4 L Neutrophils % 78.9 Lymphocytes % 11.6 Monocytes % 9.1 D Eosinophils % 0.1 Basophils % 0.3 Sodium 142 D Potassium 4.8 D Chloride 108 H D Carbon Dioxide 27 Anion Gap 7 L BUN 12 Creatinine 0.5 L D Creat Clearance w eGFR > 60 POC Glucometer 274.18678 Random Glucose 114 H D Calcium 8.0 L Total Bilirubin 1.1 H D AST 7 L D ALT 13 D Alkaline Phosphatase 54 Creatine Kinase Troponin I Total Protein 5.4 L Albumin 2.7 L D Blood Type Antibody Screen Crossmatch Crossmatch IS Only 03/08/17 03/08/17 05:00 05:15 WBC RBC Hgb Hct MCV MCH MCHC RDW Plt Count MPV Neutrophils % Lymphocytes % Monocytes % Eosinophils % Basophils % Sodium Potassium Chloride Carbon Dioxide Anion Gap BUN Creatinine Creat Clearance w eGFR POC Glucometer [phone] Random Glucose Calcium Total Bilirubin AST ALT Alkaline Phosphatase Creatine Kinase Troponin I 0.16 H Total Protein Albumin Blood Type Antibody Screen Crossmatch Crossmatch IS Only Active Medications Generic Name Dose Route Start Last Admin Trade Name Freq PRN Reason Stop Dose Admin Acetaminophen 325 mg 03/07/17 16:58 Tylenol - PO 03/10/17 16:57 Q4H PRN PAIN Acetaminophen 650 mg 03/07/17 16:59 Tylenol - PO Q6H PRN PAIN Atorvastatin Calcium 20 mg 03/07/17 22:00 03/07/17 21:33 Lipitor - PO 20 mg HS [facility] Administration Fentanyl 25 mcg 03/07/17 16:13 Sublimaze Injection - IVPUSH 03/10/17 16:14 [id number] PRN PAIN Hydromorphone HCl 1 mg 03/07/17 16:15 Dilaudid Injection - IVPB Q6H PRN SEVERE PAIN Lactated Ringer's 1,000 mls @ 75 mls/hr 03/08/17 10:21 Lactated Ringers Solution IV ASDIR [facility] Insulin Aspart 1 vial 03/07/17 16:30 03/08/17 06:34 Novolog Vial Sliding Scale - SQ Not Given ACHS [facility] Protocol Losartan Potassium 50 mg 03/08/17 07:00 03/08/17 06:37 Cozaar - PO 50 mg AM [facility] Administration Oxycodone HCl 5 mg 03/07/17 16:58 03/07/17 23:59 Roxicodone - PO 5 mg Q4H PRN Administration PAIN LEVEL 1-5 Oxycodone HCl 10 mg 03/07/17 16:59 Roxicodone - PO Q6H PRN PAIN LEVEL 6-10 Pantoprazole Sodium 40 mg 03/09/17 10:00 Protonix - PO DAILY [facility] ASSESSMENT/PLAN: 81 yo F with h/o of HTN, HLD, NIDDM, and PAD s/p multiple BL femoral angioplasty procedures with recent L femoral popliteal angioplasty who initially presented with claudication of RLE 2/2 occluded RLE stents (11/03), and is post op day #1 R femoral popliteal bypass here in ICU for post op monitoring and care. Neuro: A&O x 3 No focal neurological deficits Cardiac: HTN: (controlled) Home Losartan 50 mg PO QAM 115-150/42-95 Plan: -Cont Losartan 50 mg PO QAM PAD: Day 1 s/p R femoral popliteal bypass Claudication of RLE 2/2 occluded RLE stents (11/03) H/o multiple BL femoral angioplasty procedures. Home Simvastatin 40 mg PO QD Right groin dressing applied c/d/i. Absent evidence of drainage, active bleeding , hematoma formation. Jake wrap bandage present over right LE. + Symmetric Doppler of BL Pedal pulses. Extremities well perfused. Per Dr. Mclean holding ASA and Lovenox d/t acute drop in H/H. He will resume once H/H stable. Plan: -Cont atorvastatin 20 mg PO -cont post op managment per surgical team -Q4 pedal pulse check -Frequent monitoring of R groin bleeding -Pain management PRN Oxycodone, Acetaminophen, Fenatnyl, Hydromorphone. -Holding ASA and Lovenox d/t acute blood loss anemia. Restart per surgical team. -Wt. bearing as tolerated -Cont SCD's Elevated Troponins Most likely 2/2 demand ischemia in setting of acute blood loss anemia. 0.14-->0.16 Plan: -Trend Troponins Pulmonary: Non contributory -O2 PRN -Incentive Spirometry Endocrine: NIDDM (stable) Glu 274-->137 Plan: -Insulin Aspart sliding scale Heme: Acute blood loss anemia Day 1 s/p R femoral popliteal bypass H/H: 9.9/30.6-->8.1/23.9 1 U PRBC x 2 Plan: -Serial CBC -Hold ASA -Hold Lovenox FEN: 1L Lactated Ringers, Lytes PRN, Diabetic Diet PPx: Pantaprazole 40 mg PO QD, Holding Lovenox d/t decreased H/H. SCD's. Dispo: We will continue to follow the patient. Visit type - Emergency Visit Emergency Visit: Yes ED Registration Date: 03/07/17 Care time: The patient presented to the Emergency Department on the above date and was hospitalized for further evaluation of their emergent condition. - New Patient This patient is new to me today: Yes Date on this admission: 03/08/17 - Critical Care Critical Care patient: Yes Total Critical Care Time (in minutes): 35 Critical Care Statement: The care of this patient involved high complexity decision making to prevent further life threatening deterioration of the patient 's condition and/or to evaluate & treat vital organ system(s) failure or risk of failure.
[2017-03-08 18:54] LABS: ALBUMIN 2.8 g/dl (3.4-5.0); ALK PHOS 54 U/L (45-117); ANION GAP 7 (8-16); BILIRUBIN,TOTAL 1.2 mg/dL (0.2-1.0); CALCIUM 7.8 mg/dL (8.5-10.1); CO2 27 mmol/L (21-32); CREATININE 0.5 mg/dL (0.55-1.02); GLUCOSE,RANDOM 184 mg/dL (74-106); SGOT/AST 6 U/L (15-37); SGPT/ALT 13 U/L (12-78); TOT PROT 5.4 g/dl (6.4-8.2)
[2017-03-08] MEDS: ATORVASTATIN CA 20 MG TABLET (FP) PO SCH (21:37)
[2017-03-08] MEDS: oxyCODONE HCL 5 MG TABLET PO PRN (21:43)
[2017-03-08 22:10] LABS: MCH 29.2 pg (25.7-33.7); MCHC 34.3 g/dl (32.0-36.0); MEAN CELL VOLUME 85.2 fl (80-96); MEAN PLT VOLUME 7.2 fl (7.5-11.1); PLATELET COUNT 279 K/MM3 (134-434); RDW 16.3 % (11.6-15.6); WHITE BLOOD COUNT 8.4 K/mm3 (4.0-10.0)
--- NOTE | 2017-03-08 22:58 | PN ---
Progress Note (short form) - Note Progress Note: Repeat evening CBC revealed uptrending H&H (Hgb 9.2 from 8.1). As per surgical team's note, Lovenox 40mg PO BID was restarted with first dose given this evening. ASA and Plavix were restarted for tomorrow. Valencia Lawrence MD PGY-1
[2017-03-08] MEDS: ENOXAPARIN NA (PORCINE) 40 MG/0.4 ML DISP.SYRIN SQ SCH (23:42)
[2017-03-09 05:57] LABS: EOSINOPHIL 1.6 % (0-4.5); MCH 29.2 pg (25.7-33.7); MCHC 34.2 g/dl (32.0-36.0); MEAN CELL VOLUME 85.6 fl (80-96); NEUTROPHILS 70.3 % (42.8-82.8); PLATELET COUNT 290 K/MM3 (134-434); RDW 16.1 % (11.6-15.6); WHITE BLOOD COUNT 7.9 K/mm3 (4.0-10.0)
[2017-03-09] MEDS: LOSARTAN POTASSIUM 50 MG TABLET (FP) PO SCH (06:05)
[2017-03-09] MEDS: INSULIN SLIDING SCALE (NOVOLOG) 1 VIAL SQ SCH ×4 (06:06→21:42)
[2017-03-09 06:26] LABS: ALBUMIN 2.7 g/dl (3.4-5.0); ANION GAP 5 (8-16); BILIRUBIN,TOTAL 1.1 mg/dL (0.2-1.0); CALCIUM 7.8 mg/dL (8.5-10.1); CO2 28 mmol/L (21-32); CREATININE 0.5 mg/dL (0.55-1.02); GLUCOSE,RANDOM 123 mg/dL (74-106); SGOT/AST 9 U/L (15-37); SGPT/ALT 13 U/L (12-78); TOT PROT 5.4 g/dl (6.4-8.2)
[2017-03-09 06:28] LABS: ALK PHOS 54 U/L (45-117); CPK 42 IU/L (26-192)
--- NOTE | 2017-03-09 09:37 | PN ---
Progress Note (short form) - Note Progress Note: Seen and examined in ICU Hgb stable, restarted ASA, plavix and LMWH Denies: CP/SOB/N/V C/O: left toe pain controlled with oxy Current Medications Acetaminophen (Tylenol -) 325 mg PO Q4H PRN PRN Reason: PAIN Stop: 03/10/17 16:57 Acetaminophen (Tylenol -) 650 mg PO Q6H PRN PRN Reason: PAIN Aspirin (Ecotrin -) 81 mg PO DAILY [facility] Atorvastatin Calcium (Lipitor -) 20 mg PO HS [facility] Last Admin: 03/08/17 21:37 Dose: 20 mg Clopidogrel Bisulfate (Plavix -) 75 mg PO DAILY [facility] Enoxaparin Sodium (Lovenox -) 40 mg SQ BID [facility] Last Admin: 03/08/17 23:42 Dose: 40 mg Hydromorphone HCl (Dilaudid Injection -) 1 mg IVPB Q6H PRN PRN Reason: SEVERE PAIN Insulin Aspart (Novolog Vial Sliding Scale -) 1 vial SQ ACHS [facility] PRN Reason: Protocol Last Admin: 03/09/17 06:06 Dose: Not Given Losartan Potassium (Cozaar -) 50 mg PO AM [facility] Last Admin: 03/09/17 06:05 Dose: 50 mg Oxycodone HCl (Roxicodone -) 5 mg PO Q4H PRN PRN Reason: PAIN LEVEL 1-5 Last Admin: 03/08/17 21:43 Dose: 5 mg Oxycodone HCl (Roxicodone -) 10 mg PO Q6H PRN PRN Reason: PAIN LEVEL 6-10 Pantoprazole Sodium (Protonix -) 40 mg PO DAILY [facility] Vital Signs Period Temp Pulse Resp BP Sys/Sims Pulse Ox Last 24 Hr 98.2 F-98.8 F 63-86 15-21 115-144/42-74 100-100 Intake & Output 03/06/17 03/07/17 03/08/17 03/09/17 23:59 23:59 23:59 23:59 Intake Total 2750 2825 240 Output Total 1900 1800 Balance 850 1025 240 Weight 41.73 kg 41.73 kg 47.174 kg 45.767 kg General: awake, alert and cooperative HEENT: left eye deviation (chronic), right eye reactive CV: RRR Pulm: CTA Abd: SNTND, +BS Ext: right foot dressing c/d/i + dopplerable pulses, left foot toes cool, eccymosis noted + doppler pulses Neuro: grossly intact CBCD WBC 7.9 K/mm3 (4.0-10.0) 03/09/17 05:45 RBC 3.38 M/mm3 (3.60-5.2) L 03/09/17 05:45 Hgb 9.9 GM/dL (10.7-15.3) L 03/09/17 05:45 Hct 29.0 % (32.4-45.2) L 03/09/17 05:45 MCV 85.6 fl (80-96) 03/09/17 05:45 MCHC 34.2 g/dl (32.0-36.0) 03/09/17 05:45 RDW 16.1 % (11.6-15.6) H 03/09/17 05:45 Plt Count 290 K/MM3 (134-434) 03/09/17 05:45 MPV 7.0 fl (7.5-11.1) L 03/09/17 05:45 CMP Sodium 139 mmol/L (136-145) 03/09/17 05:45 Potassium 3.9 mmol/L (3.5-5.1) 03/09/17 05:45 Chloride 106 mmol/L (98-107) 03/09/17 05:45 Carbon Dioxide 28 mmol/L (21-32) 03/09/17 05:45 Anion Gap 5 (8-16) L 03/09/17 05:45 BUN 10 mg/dL (7-18) D 03/09/17 05:45 Creatinine 0.5 mg/dL (0.55-1.02) L 03/09/17 05:45 Creat Clearance w eGFR > 60 (>60) 03/09/17 05:45 Random Glucose 123 mg/dL (74-106) H D 03/09/17 05:45 Calcium 7.8 mg/dL (8.5-10.1) L 03/09/17 05:45 Total Bilirubin 1.1 mg/dL (0.2-1.0) H 03/09/17 05:45 AST 9 U/L (15-37) L D 03/09/17 05:45 ALT 13 U/L (12-78) 03/09/17 05:45 Alkaline Phosphatase 54 U/L (45-117) 03/09/17 05:45 Total Protein 5.4 g/dl (6.4-8.2) L 03/09/17 05:45 Albumin 2.7 g/dl (3.4-5.0) L 03/09/17 05:45 CARDIAC ENZYMES Creatine Kinase 42 IU/L (26-192) 03/09/17 05:45 Troponin I 0.10 ng/ml (0.00-0.05) H 03/09/17 05:45 Problem List - Problems (1) Diabetes Code(s): E11.9 - TYPE 2 DIABETES MELLITUS WITHOUT COMPLICATIONS (2) Hypertension Code(s): I10 - ESSENTIAL (PRIMARY) HYPERTENSION (3) 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
[2017-03-09] MEDS: CLOPIDOGREL BISULFATE 75 MG TABLET (FP) PO SCH (10:39)
[2017-03-09] MEDS: ASPIRIN COATED 81 MG TABLET.EC PO SCH (10:39)
[2017-03-09] MEDS: ENOXAPARIN NA (PORCINE) 40 MG/0.4 ML DISP.SYRIN SQ SCH ×2 (10:39→21:41)
[2017-03-09] MEDS: PANTOPRAZOLE 40 MG TABLET (FP) PO SCH (10:39)
[2017-03-09] MEDS: ACETAMINOPHEN 325 MG TABLET (FP) PO PRN (11:38)
[2017-03-09] MEDS: oxyCODONE HCL 5 MG TABLET PO PRN ×2 (11:39→19:46)
[2017-03-09 15:13] LABS: BASOPHIL 0.8 % (0-2.0); EOSINOPHIL 1.1 % (0-4.5); MCH 29.1 pg (25.7-33.7); MCHC 34.1 g/dl (32.0-36.0); MEAN CELL VOLUME 85.4 fl (80-96); MEAN PLT VOLUME 6.7 fl (7.5-11.1); PLATELET COUNT 280 K/MM3 (134-434); RDW 16.3 % (11.6-15.6); WHITE BLOOD COUNT 8.9 K/mm3 (4.0-10.0)
[2017-03-09] MEDS ORDERED: HEMOQUE TEST 1 EACH EACH ONE (17:03)
[2017-03-09] MEDS: ATORVASTATIN CA 20 MG TABLET (FP) PO SCH (21:41)
[2017-03-09] MEDS: BACITRACIN 15 GM TUBE TOPICAL OINTMENT TP SCH (21:42)
[2017-03-10] MEDS: LOSARTAN POTASSIUM 50 MG TABLET (FP) PO SCH (06:22)
[2017-03-10] MEDS: ACETAMINOPHEN 325 MG TABLET (FP) PO PRN (08:27)
[2017-03-10] MEDS: ASPIRIN COATED 81 MG TABLET.EC PO SCH (09:20)
[2017-03-10] MEDS: CLOPIDOGREL BISULFATE 75 MG TABLET (FP) PO SCH (09:20)
[2017-03-10] MEDS: PANTOPRAZOLE 40 MG TABLET (FP) PO SCH (09:20)
[2017-03-10] MEDS: BACITRACIN 15 GM TUBE TOPICAL OINTMENT TP SCH (09:20)
[2017-03-10] MEDS: ENOXAPARIN NA (PORCINE) 40 MG/0.4 ML DISP.SYRIN SQ SCH ×2 (09:21→21:10)
[2017-03-10] MEDS: INSULIN SLIDING SCALE (NOVOLOG) 1 VIAL SQ SCH ×4 (09:22→21:26)
[2017-03-10] MEDS ORDERED: oxyCODONE HCL 5 MG TABLET PO PRN ×2 (19:50→19:51)
[2017-03-10 20:27] LABS: MCH 29.6 pg (25.7-33.7); MCHC 34.2 g/dl (32.0-36.0); MEAN CELL VOLUME 86.6 fl (80-96); MEAN PLT VOLUME 7.1 fl (7.5-11.1); PLATELET COUNT 318 K/MM3 (134-434); RDW 16.6 % (11.6-15.6)
[2017-03-10 20:47] LABS: ANION GAP 6 (8-16); CALCIUM 7.6 mg/dL (8.5-10.1); CO2 26 mmol/L (21-32); CREATININE 0.6 mg/dL (0.55-1.02); GLUCOSE,RANDOM 220 mg/dL (74-106)
[2017-03-10] MEDS: ATORVASTATIN CA 20 MG TABLET (FP) PO SCH (21:10)
[2017-03-11] MEDS: LOSARTAN POTASSIUM 50 MG TABLET (FP) PO SCH (06:27)
[2017-03-11] MEDS: INSULIN SLIDING SCALE (NOVOLOG) 1 VIAL SQ SCH ×4 (06:27→21:25)
[2017-03-11] MEDS ORDERED: PT OWN MED DRAWER 7, Y5N ONE (09:59)
[2017-03-11] MEDS: ASPIRIN COATED 81 MG TABLET.EC PO SCH (10:01)
[2017-03-11] MEDS: CLOPIDOGREL BISULFATE 75 MG TABLET (FP) PO SCH (10:01)
[2017-03-11] MEDS: PANTOPRAZOLE 40 MG TABLET (FP) PO SCH (10:02)
[2017-03-11] MEDS: BACITRACIN 15 GM TUBE TOPICAL OINTMENT TP SCH (10:02)
[2017-03-11] MEDS: ENOXAPARIN NA (PORCINE) 40 MG/0.4 ML DISP.SYRIN SQ SCH ×2 (10:02→21:24)
--- NOTE | 2017-03-11 11:24 | OP ---
DATE OF OPERATION: 03/07/2017 PREOPERATIVE DIAGNOSIS: Right leg disabling claudication, rest pain, status post atherectomy and angioplasty in the past with occluded superficial femoral artery. POSTOPERATIVE DIAGNOSIS: Right leg disabling claudication, rest pain, status post atherectomy and angioplasty in the past with occluded superficial femoral artery. OPERATIVE PROCEDURE: Right femoral [id number] popliteal bypass with Onward-Tunde and angiogram and balloon angioplasty of the proximal popliteal artery with a 4-mm balloon and completion angiogram. SURGEON: Ritika Mclean MD COMMISSION ASSOCIATE: Chelsea ANESTHESIA: Local sedation. INDICATION FOR PROCEDURE: Patient is a 81-year-old with known history of bilateral leg claudications, was admitted with pain in the right foot, and patient has had claudication in the past, for which angioplasty and stent have been placed, but now, comes in with occluded stent in the right leg. Attempts were made as an outpatient in the office to cross the stent, but there was an overlapping of the stent and it was not possible technically. So, the patient is brought in for a femoropopliteal bypass. DESCRIPTION OF PROCEDURE: The right leg was prepped and draped. Local with Marcaine was injected. Intravenous antibiotic was given. An incision was made in the right groin to identify the common, superficial, and the profunda femoral arteries from the old previous patch which had been used and again [id number] popliteal artery was isolated and encircled with Vesseloops. A subsartorial tunnel was created. Patient was given 4000 units of heparin, and 6-mm vein graft was brought through the subsartorial tunnel and proximal and distal anastomosis was done to common femoral artery to the top and to the popliteal artery below, where it was soft. An angiogram was done which revealed some significant stenotic lesion of the popliteal artery beyond the anastomosis; so, this was crossed with a wire, and 5 x 40 balloon was used. Angioplasty of the distal popliteal artery was done with adequate results. The patient had 2-vessel runoff into the leg, and after adequate hemostasis, subcutaneous tissue and skin were closed. Patient went to the recovery room in stable condition. RITIKA MCLEAN M.D. [id number] cc: Dr. Husain
--- NOTE | 2017-03-11 11:53 | PN ---
Progress Note (short form) - Note Progress Note: 4 days s/p Rt leg Fem-pop bypass. Denies pain in the right leg. Patient describes pain in the left leg that began over the weekend. Pain relieved with percocet. Unable to bear weight due to the pain. Says the compression stockings are painful. General: calm and cooperative, lying in bed, NAD. Lungs: CTA b/l. Heart: RRR, no MRG. Lower ext: RLE: incisions c/d/i with lizzy, no hematoma, foot warm w/ 2+ DP pulse, no peripheral edema. LLE: diffuse ecchymosis, foot cool, non-palpable pedal pulses, no pallor or cyanosis, no peripheral edema. S/p multiple b/l angioplasties for rest pain/claudication in the past. 4 days s/p Rt fem-pop bypass. LLE arterial ultrasound showing monophasic waveforms throughout with suspected inflow disease. Will schedule LLE iliac angioplasty/fem-pop bypass tomorrow for ischemic left foot. H&H trending up s/p 2 units PRBC. (one unit intra-op, one unit post-op) Avoid compression stocking/SCD on left leg. Use SCD on Rt leg. Bedrest. NPO after midnight. Hold Lovenox tomorrow morning.
[2017-03-11] MEDS: ATORVASTATIN CA 20 MG TABLET (FP) PO SCH (21:23)
[2017-03-12] MEDS: INSULIN SLIDING SCALE (NOVOLOG) 1 VIAL SQ SCH ×2 (06:18→23:50)
[2017-03-12] MEDS: LOSARTAN POTASSIUM 50 MG TABLET (FP) PO SCH (06:59)
[2017-03-12 08:14] LABS: BASOPHIL 0.5 % (0-2.0); EOSINOPHIL 1.6 % (0-4.5); MCHC 33.5 g/dl (32.0-36.0); MEAN CELL VOLUME 86.7 fl (80-96); MEAN PLT VOLUME 6.3 fl (7.5-11.1); NEUTROPHILS 79.9 % (42.8-82.8); PLATELET COUNT 360 K/MM3 (134-434); RDW 16.3 % (11.6-15.6); WHITE BLOOD COUNT 8.5 K/mm3 (4.0-10.0)
[2017-03-12] MEDS ORDERED: ONDANSETRON 4 MG/2 ML VIAL IVPUSH PRN (10:54)
[2017-03-12] MEDS ORDERED: LACTATED RINGERS SOLUTION 1,000 ML IV SCH (11:00)
[2017-03-12] MEDS ORDERED: LIDOCAINE HCL 1%, 10 MG/ML (20ML VIAL) ONE ×2 (11:25→13:10)
[2017-03-12] MEDS ORDERED: HEPARIN NA (PORCINE) 5,000 UNITS/ML 1ML VIAL ONE ×2 (11:25→12:15)
[2017-03-12] MEDS ORDERED: ceFAZolin SODIUM 1 GM VIAL IVPB ONE (12:10)
[2017-03-12] MEDS ORDERED: LIDOCAINE HCL 1%, 10 MG/ML (20ML VIAL) NR ONE (13:13)
--- NOTE | 2017-03-12 14:28 | OP ---
Operative Note - Note: Operative Date: 03/12/17 Pre-Operative Diagnosis: Rest pain of left foot, suspected iliac stenosis Operation: LLE Diagnostic angiogram. Angioplasty of Lt external iliac and common femoral artery. LLE Completion angiogram. Left femoral endarterectomy with patch Findings: high grade external iliac and common femoral stenosis Implants: Vascutek fabric patch Post-Operative Diagnosis: Same as Pre-op Surgeon: Ritika Mclean Glass Beveler: Chelsea Vasquez Anesthesiologist/HEMMER LOCKSTITCH: Deborah Lynn Anesthesia: MAC Specimens Removed: LT femoral plaque Estimated Blood Loss (mls): 50 Operative Report Dictated: Yes
[2017-03-12 16:07] LABS: MCH 29.3 pg (25.7-33.7); MCHC 33.9 g/dl (32.0-36.0); MEAN CELL VOLUME 86.5 fl (80-96); MEAN PLT VOLUME 6.4 fl (7.5-11.1); PLATELET COUNT 330 K/MM3 (134-434); RDW 16.5 % (11.6-15.6); WHITE BLOOD COUNT 7.6 K/mm3 (4.0-10.0)
--- NOTE | 2017-03-12 21:18 | PN ---
Progress Note (short form) - Note Progress Note: POD#0 LLE iliac angioplasty/fem-pop bypass of ischemic L foot. POD#5 of R fem- pop bypass Seen and examined in ICU Hgb stable, restarted ASA, plavix and LMWH Denies: CP/SOB/N/V C/O: RLE pain controlled with oxy Active Medications Generic Name Dose Route Start Last Admin Trade Name Freq PRN Reason Stop Dose Admin Acetaminophen 650 mg 03/07/17 16:59 Tylenol - PO Q6H PRN PAIN Aspirin 81 mg 03/09/17 10:00 03/11/17 10:01 Ecotrin - PO 81 mg DAILY [facility] Administration Atorvastatin Calcium 20 mg 03/07/17 22:00 03/11/17 21:23 Lipitor - PO 20 mg HS [facility] Administration Bacitracin 1 applic 03/09/17 19:45 03/11/17 10:02 Bacitracin - TP 1 applic DAILY [facility] Administration Clopidogrel Bisulfate 75 mg 03/09/17 10:00 03/11/17 10:01 Plavix - PO 75 mg DAILY [facility] Administration Sodium Chloride 1,000 mls @ 75 mls/hr 03/12/17 14:45 Normal Saline - IV ASDIR [facility] Insulin Aspart 1 vial 03/07/17 16:30 03/12/17 06:18 Novolog Vial Sliding Scale - SQ Not Given ACHS [facility] Protocol Losartan Potassium 50 mg 03/08/17 07:00 03/12/17 06:59 Cozaar - PO 50 mg AM [facility] Administration Oxycodone HCl 5 mg 03/10/17 19:50 Roxicodone - PO Q4H PRN PAIN 1-5 Oxycodone HCl 10 mg 03/10/17 19:51 03/10/17 21:09 Roxicodone - PO 10 mg Q6H PRN Administration Pantoprazole Sodium 40 mg 03/09/17 10:00 03/11/17 10:02 Protonix - PO 40 mg DAILY [facility] Administration Temp 98.2 F 03/12/17 17:00 Pulse 77 03/12/17 17:25 Resp 22 03/12/17 17:25 BP 150/62 03/12/17 17:25 Pulse Ox 100 03/12/17 18:00 Intake & Output 03/11/17 03/12/17 03/12/17 23:59 11:59 23:59 Intake Total 1250 Output Total 450 Balance 800 Weight 44.962 kg Intake: IV 1250 Oral 0 Output: Urine 400 Void 400 Estimated Blood Loss 50 Other: Voiding Method Bedpan Bedpan Bedpan # Unmeasured Voids Void 2 2 Bowel Movement Yes Yes # Bowel Movements 1 Weight Measurement Method [facility], BMP 03/12/17 16:00 03/10/17 19:55 #oxycodone for pain control #continue aspirin and plavix #continue pantoprazole #continue losartan #pedal pulse check q2h #glucose control #advance diet tomorrow 35min cc time JUAN A Holbrook
[2017-03-12] MEDS: ATORVASTATIN CA 20 MG TABLET (FP) PO SCH (23:49)
[2017-03-12] MEDS: SODIUM CHLORIDE 1,000 ML IV SCH (23:49)
[2017-03-13 06:04] LABS: BASOPHIL 0.4 % (0-2.0); EOSINOPHIL 1.3 % (0-4.5); MCH 29.3 pg (25.7-33.7); MCHC 33.8 g/dl (32.0-36.0); MEAN CELL VOLUME 86.6 fl (80-96); MEAN PLT VOLUME 6.9 fl (7.5-11.1); NEUTROPHILS 79.8 % (42.8-82.8); PLATELET COUNT 344 K/MM3 (134-434); RDW 16.2 % (11.6-15.6)
[2017-03-13 06:44] LABS: ANION GAP 10 (8-16); CALCIUM 7.5 mg/dL (8.5-10.1); CO2 24 mmol/L (21-32); GLUCOSE,RANDOM 131 mg/dL (74-106)
[2017-03-13 06:45] LABS: CREATININE 0.3 mg/dL (0.55-1.02)
[2017-03-13] MEDS: INSULIN SLIDING SCALE (NOVOLOG) 1 VIAL SQ SCH ×3 (07:30→17:30)
--- NOTE | 2017-03-13 08:19 | PN ---
Progress Note (short form) - Note Progress Note: Post op day#1.S/P Left femoral artery endarterectomy with angiogram and angioplasty under MAC uneventful.P70,BP 141/50 and Spo2 96% RA.Patient stable.No any anesthesia related problem.Patient DC from the anesthesia care.
--- NOTE | 2017-03-13 08:37 | OP ---
DATE OF OPERATION: 03/12/2017 PREOPERATIVE DIAGNOSIS: Left lower extremity rest pain or disabling claudication, status post atherectomy and angioplasty in the past. POSTOPERATIVE DIAGNOSIS: Left lower extremity rest pain or disabling claudication, status post atherectomy and angioplasty in the past. OPERATIVE PROCEDURE: Left femoral angiogram, diagnostic, followed by angioplasty of the two iliac lesions, one with 8-mm, another one with 6-mm balloon and endarterectomy of the common femoral artery and patch angioplasty with Dacron mesh and completion angiogram. SURGEON: Ritika Mclean MD MICROWAVE OVEN ASSEMBLER: Chelsea ANESTHESIA: Local sedation. INDICATION FOR PROCEDURE: Patient was admitted with bilateral lower extremity disabling claudication on the right side. She had a femoral to [id number] popliteal bypass which was successful, and patient had an atherectomy and angioplasty of the left superficial femoral artery 3 weeks earlier, which was functioning well, but in the hospital, she has developed numbness in the foot and severe pain. Clinically, the patient had decreased femoral pulses. DESCRIPTION OF PROCEDURE: The patient was brought to the operating room. The left leg was prepped and draped. Local with Marcaine was injected. Retrograde puncture of the femoral artery was done, and a diagnostic angiogram was done which revealed 2 lesions in the iliac artery, one just below the bifurcation, one at the pelvic inlet. The proximal lesion, the artery was bigger, and this was crossed with a wire, an 8-mm balloon, and the lower lesion, the artery was smaller; so, a 6-mm balloon was used, and angioplasty was done successfully. Prior to the surgery, the sonogram of the femoral artery was done which revealed areas of multiple calcified plaque and original stenosis of the superficial femoral artery. So, at this stage, it was decided to do endarterectomy, and so, the common femoral artery was opened, and endarterectomy of the calcified plaque was done. After the plaque was removed from the superficial femoral artery origin, Dacron patch was used and 6-0 Prolene, and patching of the endarterectomy and arteriotomy site was done successfully with 6-0 Prolene. Flow was established, and the patient had a good pulse in the popliteal artery, palpable pulse. After adequate hemostasis, subcutaneous incision and skin were closed, and patient went to the recovery room in stable condition. RITIKA MCLEAN M.D. /[id number] cc:
[2017-03-13] MEDS: BACITRACIN 15 GM TUBE TOPICAL OINTMENT TP SCH (09:21)
[2017-03-13] MEDS: LOSARTAN POTASSIUM 50 MG TABLET (FP) PO SCH (09:22)
[2017-03-13] MEDS: ASPIRIN COATED 81 MG TABLET.EC PO SCH ×2 (09:22→12:30)
[2017-03-13] MEDS: CLOPIDOGREL BISULFATE 75 MG TABLET (FP) PO SCH ×2 (09:22→12:31)
[2017-03-13] MEDS: PANTOPRAZOLE 40 MG TABLET (FP) PO SCH ×2 (09:23→12:31)
--- NOTE | 2017-03-13 11:04 | PN ---
Teaching Attending Note Name of Resident: Josy Kennedy ATTENDING PHYSICIAN STATEMENT I saw and evaluated the patient. I reviewed the resident's note and discussed the case with the resident. I agree with the resident's findings and plan as documented. SUBJECTIVE: Patient seen and examined in the ICU. Awake and alert. Pain in LE is controlled. No obvious bleeding. No CP or SOB. On ASA / Plavix Intake & Output 03/10/17 03/11/17 03/12/17 03/13/17 23:59 23:59 23:59 23:59 Intake Total 322 979 4966 Output Total 100 450 Balance 051 191 5597 Weight 103 lb 2 oz 99 lb 2 oz 97 lb 1.6 oz Last Vital Signs Temp Pulse Resp BP Pulse Ox 98.2 F 67 18 152/72 99 03/13/17 06:00 03/13/17 06:00 03/13/17 06:00 03/13/17 06:00 03/12/17 21:00 Active Medications Acetaminophen (Tylenol -) 650 mg PO Q6H PRN PRN Reason: PAIN Aspirin (Ecotrin -) 81 mg PO DAILY [facility] Last Admin: 03/13/17 09:22 Dose: 81 mg Atorvastatin Calcium (Lipitor -) 20 mg PO HS [facility] Last Admin: 03/12/17 23:49 Dose: 20 mg Bacitracin (Bacitracin -) 1 applic TP DAILY [facility] Last Admin: 03/13/17 09:21 Dose: 1 applic Clopidogrel Bisulfate (Plavix -) 75 mg PO DAILY [facility] Last Admin: 03/13/17 09:22 Dose: 75 mg Sodium Chloride (Normal Saline -) 1,000 mls @ 75 mls/hr IV ASDIR [facility] Last Admin: 03/12/17 23:49 Dose: 75 mls/hr Insulin Aspart (Novolog Vial Sliding Scale -) 1 vial SQ ACHS [facility] PRN Reason: Protocol Last Admin: 03/13/17 07:30 Dose: 2 units Losartan Potassium (Cozaar -) 50 mg PO AM [facility] Last Admin: 03/13/17 09:22 Dose: 50 mg Oxycodone HCl (Roxicodone -) 5 mg PO Q4H PRN PRN Reason: PAIN 1-5 Last Admin: 03/13/17 02:14 Dose: 5 mg Oxycodone HCl (Roxicodone -) 10 mg PO Q6H PRN Last Admin: 03/10/17 21:09 Dose: 10 mg Pantoprazole Sodium (Protonix -) 40 mg PO DAILY [facility] Last Admin: 03/13/17 09:23 Dose: 40 mg Constitutional: Yes: No Distress, Awake and alert Eyes: Yes: Other (Strabismus) HENT: Yes: WNL, Normocephalic Neck: Yes: WNL, Supple Cardiovascular: Yes: Regular Rate and Rhythm, S1, S2 Respiratory: Yes: Regular, On Nasal O2 Gastrointestinal: Yes: Normal Bowel Sounds, Soft Renal/: Yes: WNL Extremities: Yes: Cool to touch Edema: LLE: Trace, RLE: Trace Integumentary: Yes: Bruising Wound/Incision: Yes: Clean/Dry, Dressing Dry and Intact, Other (Groin dressing and ludy wrap in place) Neurological: Yes: Alert, Oriented ...Motor Strength: WNL Psychiatric: Yes: Alert, Oriented Labs: Laboratory Results - last 24 hr 03/12/17 03/12/17 03/13/17 16:00 17:05 05:00 WBC 7.6 RBC 3.17 L Hgb 9.3 L Hct 27.4 L MCV 86.5 MCH 29.3 MCHC 33.9 RDW 16.5 H Plt Count 330 MPV 6.4 L Neutrophils % Lymphocytes % Monocytes % Eosinophils % Basophils % Sodium 139 Potassium 4.0 Chloride 105 Carbon Dioxide 24 Anion Gap 10 BUN 11 D Creatinine 0.3 L D POC Glucometer 101 Random Glucose 131 H D Calcium 7.5 L 03/13/17 03/13/17 05:00 06:04 WBC 8.0 RBC 3.19 L Hgb 9.3 L Hct 27.6 L MCV 86.6 MCH 29.3 MCHC 33.8 RDW 16.2 H Plt Count 344 MPV 6.9 L Neutrophils % 79.8 Lymphocytes % 9.8 Monocytes % 8.7 Eosinophils % 1.3 Basophils % 0.4 Sodium Potassium Chloride Carbon Dioxide Anion Gap BUN Creatinine POC Glucometer 164.29358 Random Glucose Calcium Problem List - Problems (1) Diabetes Code(s): E11.9 - TYPE 2 DIABETES MELLITUS WITHOUT COMPLICATIONS (2) Hypertension Code(s): I10 - ESSENTIAL (PRIMARY) HYPERTENSION (3) 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
[2017-03-13] MEDS: SODIUM CHLORIDE 1,000 ML IV SCH (15:30)
--- NOTE | 2017-03-13 15:31 | PN ---
Physical Exam: SUBJECTIVE: Patient seen and examined at bedside. 24 hr events -No acute events overnight -afebrile -has had palpable pedal pulses Today -Pt complains of intermittent numbness in big toe on LLE, states that legs have felt "sore" after surgery -Otherwise, denies COPPOLA, fever, chills, SOB, or chest pain -Pt for transfer to med-surg. Order is in OBJECTIVE: Vital Signs Period Temp Pulse Resp BP Sys/Sims Pulse Ox Last 24 Hr 98.2 F-100.0 F 66-96 13-26 124-159/49-76 99-100 GENERAL: The patient is awake, alert, and fully oriented, in no acute distress. HEAD: Normal with no signs of trauma. EYES: PERRL, extraocular movements intact, sclera anicteric, conjunctiva clear. NECK: Trachea midline, supple. LUNGS: Breath sounds equal, clear to auscultation bilaterally, no wheezes, no crackles, no accessory muscle use. HEART: Regular rate and rhythm, S1, S2 without murmur, rub or gallop. ABDOMEN: Soft, nontender, nondistended, normoactive bowel sounds EXTREMITIES: 2+ dorsalis pedis pulses, warm RLE, cooler LLE, pulses appreciated with doppler. R groin- lizzy intact, L thigh/groin area: wrapped, without drainage NEUROLOGICAL: Cranial nerves II through XII grossly intact. Laboratory Results - last 24 hr 03/12/17 03/12/17 03/13/17 16:00 17:05 05:00 WBC 7.6 RBC 3.17 L Hgb 9.3 L Hct 27.4 L MCV 86.5 MCH 29.3 MCHC 33.9 RDW 16.5 H Plt Count 330 MPV 6.4 L Neutrophils % Lymphocytes % Monocytes % Eosinophils % Basophils % Sodium 139 Potassium 4.0 Chloride 105 Carbon Dioxide 24 Anion Gap 10 BUN 11 D Creatinine 0.3 L D POC Glucometer 101 Random Glucose 131 H D Calcium 7.5 L 03/13/17 03/13/17 03/13/17 05:00 06:04 12:00 WBC 8.0 RBC 3.19 L Hgb 9.3 L Hct 27.6 L MCV 86.6 MCH 29.3 MCHC 33.8 RDW 16.2 H Plt Count 344 MPV 6.9 L Neutrophils % 79.8 Lymphocytes % 9.8 Monocytes % 8.7 Eosinophils % 1.3 Basophils % 0.4 Sodium Potassium Chloride Carbon Dioxide Anion Gap BUN Creatinine POC Glucometer 164.37494 214.53273 Random Glucose Calcium Active Medications Generic Name Dose Route Start Last Admin Trade Name Freq PRN Reason Stop Dose Admin Acetaminophen 650 mg 03/07/17 16:59 Tylenol - PO Q6H PRN PAIN Aspirin 81 mg 03/09/17 10:00 03/13/17 12:30 Ecotrin - PO Not Given DAILY [facility] Atorvastatin Calcium 20 mg 03/07/17 22:00 03/12/17 23:49 Lipitor - PO 20 mg HS [facility] Administration Bacitracin 1 applic 03/09/17 19:45 03/13/17 09:21 Bacitracin - TP 1 applic DAILY [facility] Administration Clopidogrel Bisulfate 75 mg 03/09/17 10:00 03/13/17 12:31 Plavix - PO Not Given DAILY [facility] Sodium Chloride 1,000 mls @ 75 mls/hr 03/12/17 14:45 03/12/17 23:49 Normal Saline - IV 75 mls/hr ASDIR [facility] Administration Insulin Aspart 1 vial 03/07/17 16:30 03/13/17 07:30 Novolog Vial Sliding Scale - SQ 2 units ACHS [facility] Administration Protocol Losartan Potassium 50 mg 03/08/17 07:00 03/13/17 09:22 Cozaar - PO 50 mg AM [facility] Administration Oxycodone HCl 5 mg 03/10/17 19:50 03/13/17 02:14 Roxicodone - PO 5 mg Q4H PRN Administration PAIN 1-5 Oxycodone HCl 10 mg 03/10/17 19:51 03/10/17 21:09 Roxicodone - PO 10 mg Q6H PRN Administration Pantoprazole Sodium 40 mg 03/09/17 10:00 03/13/17 12:31 Protonix - PO Not Given DAILY [facility] ASSESSMENT/PLAN: 81 yo F with h/o of HTN, HLD, NIDDM, and PAD s/p multiple BL femoral angioplasty procedures with recent L femoral popliteal angioplasty who initially presented with claudication of RLE d/t occluded RLE stents (11/03). She had L fem-pop done by outside physician, recent R fem-pop bypass (PO Day 7) , and LLE iliac and common femoral angioplasty for ischemic L foot (PO Day 2). Pt in ICU for post-op care. #NEURO -AAOx3 -no focal neuro deficits noted #CARDIO HTN -Continue losartan 50 mg PO -Continue Aspirin 81mg PO #VASCULAR -s/p R fem-pop bypass (PO Day 7) -s/p LLE iliac and common femoral angioplasty for ischemic L foot (PO Day 2) -dorsalis pedis pulses palpable, appreciated with doppler -Continue lipitor 20mg PO HS -Continue plavix 75mg PO -Q4h pedal pulse check -continue to check R, L groin site #ENDOCRINE DM -BGM -ISS #HEME -Stable H&H -Will follow #prophylaxis -protonix 40mg PO qd -DVT: SCD's #F/E/N -NS @ 75mls/hr -diabetic diet -monitor electrolytes Visit type - Emergency Visit Emergency Visit: No - New Patient This patient is new to me today: Yes Date on this admission: 03/13/17 - Critical Care Critical Care patient: Yes Total Critical Care Time (in minutes): 40 Critical Care Statement: The care of this patient involved high complexity decision making to prevent further life threatening deterioration of the patient 's condition and/or to evaluate & treat vital organ system(s) failure or risk of failure.
[2017-03-13] MEDS: ATORVASTATIN CA 20 MG TABLET (FP) PO SCH (23:18)
[2017-03-14] MEDS: INSULIN SLIDING SCALE (NOVOLOG) 1 VIAL SQ SCH ×7 (00:26→21:23)
[2017-03-14] MEDS ORDERED: ACETAMINOPHEN 325 MG TABLET (FP) PO PRN ×2 (00:38→06:03)
[2017-03-14] MEDS ORDERED: oxyCODONE HCL 5 MG TABLET PO PRN (00:38)
[2017-03-14] MEDS: LOSARTAN POTASSIUM 50 MG TABLET (FP) PO SCH (06:41)
[2017-03-14] MEDS: BACITRACIN 15 GM TUBE TOPICAL OINTMENT TP SCH ×2 (08:02→09:35)
[2017-03-14 08:49] LABS: ANION GAP 10 (8-16); CALCIUM 7.4 mg/dL (8.5-10.1); CO2 22 mmol/L (21-32); GLUCOSE,RANDOM 147 mg/dL (74-106)
[2017-03-14 08:50] LABS: CREATININE 0.4 mg/dL (0.55-1.02)
[2017-03-14 08:53] LABS: MCH 29.3 pg (25.7-33.7); MCHC 33.4 g/dl (32.0-36.0); MEAN CELL VOLUME 87.8 fl (80-96); MEAN PLT VOLUME 7.4 fl (7.5-11.1); PLATELET COUNT 244 K/MM3 (134-434); RDW 16.5 % (11.6-15.6); WHITE BLOOD COUNT 8.1 K/mm3 (4.0-10.0)
[2017-03-14] MEDS: CLOPIDOGREL BISULFATE 75 MG TABLET (FP) PO SCH (09:34)
[2017-03-14] MEDS: ASPIRIN COATED 81 MG TABLET.EC PO SCH (09:34)
[2017-03-14] MEDS: PANTOPRAZOLE 40 MG TABLET (FP) PO SCH (09:34)
--- NOTE | 2017-03-14 13:51 | PATH ---
Surgical Pathology Report Patient Name: JULIANNA MCCONNELL Med. Rec. #: [id number] /Age/Gender: 1935 (Age: 81) / F Account: [id number] Location: [facility] MED/SURG Taken: 03/12/2017 Received: 03/13/2017 Reported: 03/14/2017 Physicians: Ritika Mclean M.D. Specimen(s) Received LEFT FEMORAL PLAQUE Clinical History Occluded left SFA Final Diagnosis LEFT FEMORAL ARTERY, ENDARTERECTOMY: CALCIFIC ATHEROSCLEROSIS. Electronically Signed Cristóbal Ga M.D. Gross Description Received in formalin labeled "left femoral plaque," are 2 chowdary, calcified portions of plaque measuring 1.2 x 0.4 x 0.2 cm and 2.5 x 0.5 x 0.3 cm. Development Trainer sections are submitted in one cassette, following decalcification. /03/13/2017 saudi/03/13/2017
[2017-03-14] MEDS ORDERED: ATORVASTATIN CA 20 MG TABLET (FP) PO SCH (22:00)
[2017-03-15] MEDS: INSULIN SLIDING SCALE (NOVOLOG) 1 VIAL SQ SCH ×2 (06:17→12:59)
[2017-03-15] MEDS: LOSARTAN POTASSIUM 50 MG TABLET (FP) PO SCH (06:19)
[2017-03-15] MEDS: CLOPIDOGREL BISULFATE 75 MG TABLET (FP) PO SCH (09:30)
[2017-03-15] MEDS: ASPIRIN COATED 81 MG TABLET.EC PO SCH (09:30)
[2017-03-15] MEDS: BACITRACIN 15 GM TUBE TOPICAL OINTMENT TP SCH (09:31)
[2017-03-15] MEDS: PANTOPRAZOLE 40 MG TABLET (FP) PO SCH (09:31)
[2017-03-15 11:08] VITALS: BP 110/50; PULSE 76; TEMP 97.6
== END 2017-03-15 14:30 | disposition home or self-care (01) | DRG 271 ==
LOC: JSAMEDAYSX 10:43 → JICU 18:02 → J8W 03-09 22:37 → JSAMEDAYSX 03-12 14:00 → JICU 03-12 17:28 → J8W 03-13 20:15
PROVIDERS: ADMIT Surgery Vascular Surgery; ATTEND Surgery Vascular Surgery
PROC: 047M3ZZ Dilation of Right Popliteal Artery, Percutaneous Approach (ICD-10-PCS; 2017-03-07)
PROC: B40FYZZ Plain Radiography of Right Lower Extremity Arteries using Other Contrast (ICD-10-PCS; 2017-03-07)
PROC: 3E033GC Introduction of Other Therapeutic Substance into Peripheral Vein, Percutaneous Approach (ICD-10-PCS; 2017-03-07)
PROC: 041K4JL Bypass Right Femoral Artery to Popliteal Artery with Synthetic Substitute, Percutaneous Endoscopic Approach (ICD-10-PCS; principal; 2017-03-07 12:30)
PROC: 30233N1 Transfusion of Nonautologous Red Blood Cells into Peripheral Vein, Percutaneous Approach (ICD-10-PCS; 2017-03-08)
PROC: 04CL3ZZ Extirpation of Matter from Left Femoral Artery, Percutaneous Approach (ICD-10-PCS; 2017-03-12)
PROC: 04UD3JZ Supplement Left Common Iliac Artery with Synthetic Substitute, Percutaneous Approach (ICD-10-PCS; 2017-03-12)
PROC: B40GYZZ Plain Radiography of Left Lower Extremity Arteries using Other Contrast (ICD-10-PCS; 2017-03-12)
DX: I70.222 Atherosclerosis of native arteries of extremities with rest pain, left leg (principal); D62 Acute posthemorrhagic anemia; I10 Essential (primary) hypertension; E78.5 Hyperlipidemia, unspecified; E11.51 Type 2 diabetes mellitus with diabetic peripheral angiopathy without gangrene; Z79.84 Long term (current) use of oral hypoglycemic drugs
CPT/HCPCS: 36415; 36430; 76000-TC; 80048; 80053; 82550; 84484; 85025; 85027; 86850; 86900; 86901; 86922; 88304-TC; 88311-TC; 93926-TC; 94010; 94760; 97116-GP; 97161-GP; J1644; P9038; P9058

== ENCOUNTER 2017-12-18 13:00 | Inpatient (IN) | payer OTHER ==
[2017-12-24 09:44] VITALS: BMI 19.1
[2017-12-26] MEDS ORDERED: ceFAZolin SODIUM 1 GM VIAL IVPB ONE (12:15)
[2017-12-26] MEDS ORDERED: MIDAZOLAM HCL 2 MG/2 ML SINGLE DOSE VIAL ONE (12:17)
[2017-12-26] MEDS ORDERED: PROPOFOL 20 ML ONE ×2 (12:23→14:11)
[2017-12-26] MEDS ORDERED: BUPIVACAINE HCL/PF 0.5% (5MG/ML) 10 ML VIAL ONE (12:24)
[2017-12-26] MEDS ORDERED: POVIDONE-IODINE OINTMENT 10% - 28.4 GM TUBE ONE (12:24)
[2017-12-26] MEDS ORDERED: LIDOCAINE HCL 0.5%, 5 MG/1 ML (50mL MDV) NR ONE (12:36)
[2017-12-26] MEDS ORDERED: BUPIVACAINE HCL/PF (5 MG/ML) 30 ML VIAL IJ ONE (12:36)
[2017-12-26] MEDS ORDERED: HEPARIN NA (PORCINE) 5,000 UNITS/ML 1ML VIAL ONE (13:20)
[2017-12-26] MEDS ORDERED: IOHEXOL 300 MG/ML INFUS..BTL IJ ONE (13:40)
[2017-12-26] MEDS ORDERED: HEPARIN NA (PORCINE) 5,000 UNITS/ML 1ML VIAL SQ ONE (13:40)
--- NOTE | 2017-12-26 15:19 | OP ---
Operative Note - Note: Operative Date: 12/26/17 Pre-Operative Diagnosis: occluded Left SFA, LLE rest pain Operation: LLE diagnostic angiogram. 6x150 angioplasty of common femoral/ external iliac artery. 5x40 angioplasty of popliteal artery. LLE femoral- popliteal bypass with 6mm gortex graft. LLE Completion angiogram Findings: High grade stenosis of Lt external iliac, common femoral, and popliteal arteries. Implants: 6mm gortex graft Post-Operative Diagnosis: Same as Pre-op Surgeon: Ritika Mclean Medical Assistant Cardiology: Chelsea Vasquez Anesthesia: MAC Specimens Removed: none Estimated Blood Loss (mls): 150 Operative Report Dictated: Yes
[2017-12-26] MEDS ORDERED: DOCUSATE SODIUM 100 MG CAPSULE (FP) PO PRN (15:27)
[2017-12-26] MEDS ORDERED: MORPHINE SULFATE 2 MG/ML VIAL IVPUSH PRN (15:27)
[2017-12-26] MEDS ORDERED: LOSARTAN POTASSIUM 100 MG TABLET PO SCH (15:30)
[2017-12-26] MEDS ORDERED: ONDANSETRON 4 MG/2 ML VIAL IVPUSH PRN (15:34)
[2017-12-26] MEDS ORDERED: ACETAMINOPHEN 325 MG TABLET (FP) PO PRN ×2 (15:41→15:42)
[2017-12-26] MEDS ORDERED: oxyCODONE HCL 5 MG TABLET PO PRN ×2 (15:41→15:42)
[2017-12-26] MEDS: SODIUM CHLORIDE 1,000 ML IV SCH (16:30)
[2017-12-26] MEDS ORDERED: LACTATED RINGERS SOLUTION 1,000 ML IV SCH (18:15)
--- NOTE | 2017-12-27 00:13 | CONSULT ---
Consultation: REQUESTING PROVIDER: CONSULT REQUEST: We have been asked to medically evaluate this patient for ( specify). HISTORY OF PRESENT ILLNESS: The patient is a 82 year old female with PMHx of NIDDM, HTN, hyperlipidemia and PAD s/p multiple bilateral femoral angioplasty procedures is admitted to ICU s/ p LLE diagnostic angiogram, 6x150 angioplasty of common femoral/external iliac artery, 5x40 angioplasty of popliteal artery and LLE femoral-popliteal bypass with 6mm gortex graft. On arrival to ICU A&Ox3 HR 62, BP 142/69, O2 sat 100% on 2L NC. Left groin dressing and left medial knee dressing applied, with scant amount of serosanguinous drainage. Toes warm, DP with doppler DP. She c/o of slight numbness and pain in Lt foot. SH: no toxic habits, lives with family FH: N/A REVIEW OF SYSTEMS: CONSTITUTIONAL: Absent: fever, chills, diaphoresis, generalized weakness, weight change HEENT: Absent: rhinorrhea, nasal congestion, difficulty swallowing, visual changes CARDIOVASCULAR: Absent: chest pain, syncope, palpitations, irregular heart rate, lightheadedness , peripheral edema RESPIRATORY: Absent: cough, shortness of breath, wheezing GASTROINTESTINAL: Absent: abdominal pain, nausea, vomiting, diarrhea, constipation GENITOURINARY: Absent: dysuria, frequency, urgency, hesitancy, hematuria, flank pain, MUSCULOSKELETAL: Absent: myalgia, arthralgia, joint swelling, back pain, neck pain NEUROLOGIC: Absent: headache, dizziness, unsteady gait, seizure PHYSICAL EXAMINATION Vital Signs - 24 hr 12/26/17 12/26/17 12/26/17 10:42 11:00 15:09 Temperature 97.8 F 98.9 F Pulse Rate 50 L 50 L Respiratory 16 20 Rate Blood Pressure 171/71 124/48 O2 Sat by Pulse 99 98 Oximetry (%) 12/26/17 12/26/17 12/26/17 15:25 15:40 15:55 Temperature Pulse Rate 46 L 42 L 45 L Respiratory 16 16 16 Rate Blood Pressure 126/50 135/49 149/52 O2 Sat by Pulse 100 100 100 Oximetry (%) 12/26/17 12/26/17 12/26/17 16:10 16:25 16:40 Temperature Pulse Rate 42 L 49 L 46 L Respiratory 16 14 14 Rate Blood Pressure 165/62 139/48 145/42 O2 Sat by Pulse 100 100 100 Oximetry (%) 12/26/17 12/26/17 12/26/17 16:55 17:10 17:40 Temperature Pulse Rate 44 L 45 L 42 L Respiratory 16 16 16 Rate Blood Pressure 137/48 149/43 164/52 O2 Sat by Pulse 100 100 100 Oximetry (%) 12/26/17 12/26/17 12/26/17 18:10 18:40 19:10 Temperature Pulse Rate 44 L 46 L 44 L Respiratory 16 16 16 Rate Blood Pressure 168/60 172/60 167/53 O2 Sat by Pulse 100 100 100 Oximetry (%) 12/26/17 12/26/17 12/26/17 19:40 20:10 21:10 Temperature Pulse Rate 44 L 43 L 51 L Respiratory 16 16 14 Rate Blood Pressure 167/48 169/50 174/52 O2 Sat by Pulse 100 100 100 Oximetry (%) 12/26/17 12/26/17 22:10 23:05 Temperature 98.5 F Pulse Rate 58 L 58 L Respiratory 14 16 Rate Blood Pressure 165/54 142/51 O2 Sat by Pulse 100 Oximetry (%) GENERAL: Awake, alert, and fully oriented, in no acute distress, lying in bed comfortable, cachectic. HEAD: Normal with no signs of trauma. EYES: Pupils equal, round and reactive to light, extraocular movements intact, sclera anicteric, conjunctiva clear. EARS, NOSE, THROAT: Ears normal, nares patent, oropharynx clear without exudates. Moist mucous membranes. NECK: Normal range of motion, supple without lymphadenopathy. LUNGS: Breath sounds equal, clear to auscultation bilaterally. No wheezes, and no crackles. No accessory muscle use. HEART: Regular rate and rhythm, normal S1 and S2 without murmur, rub or gallop. ABDOMEN: Soft, nontender, not distended, normoactive bowel sounds, no guarding, no rebound, no masses. No hepatomegaly or splenomegaly. MUSCULOSKELETAL: No bony deformities or tenderness. UPPER EXTREMITIES: 2+ pulses, no peripheral edema. LOWER EXTREMITIES: 2+ pulses, no peripheral edema, dressing applied in left groin and medial knee, pulses + with doppler in DP in LLE, mottling and bruising in left foot, palpaple DP in RLE. NEUROLOGICAL: Non focal, normal speech. PSYCHIATRIC: Cooperative. Good eye contact. Appropriate mood and affect. SKIN: Warm, dry, normal turgor, no rashes. Laboratory Results - last 24 hr 12/26/17 12/26/17 09:58 10:59 POC Glucometer 140 Blood Type B POSITIVE Antibody Screen Negative Active Medications Generic Name Dose Route Start Last Admin Trade Name Freq PRN Reason Stop Dose Admin Acetaminophen 325 mg 12/26/17 15:41 Tylenol - PO Q4H PRN PAIN 1-3 Acetaminophen 650 mg 12/26/17 15:42 Tylenol - PO Q4H PRN PAIN 4-6 Aspirin 81 mg 12/27/17 10:00 Asa - PO DAILY [facility] Atorvastatin Calcium 20 mg 12/26/17 22:00 Lipitor - PO HS [facility] Clopidogrel Bisulfate 75 mg 12/27/17 10:00 Plavix - PO DAILY [facility] Docusate Sodium 100 mg 12/26/17 15:27 Colace - PO BID PRN CONSTIPATION Sodium Chloride 1,000 mls @ 75 mls/hr 12/26/17 15:45 12/26/17 16:30 Normal Saline - IV 600 mls ASDIR [facility] Administration Lactated Ringer's 1,000 mls @ 75 mls/hr 12/26/17 18:15 Lactated Ringers Solution IV ASDIR [facility] Insulin Aspart 1 vial 12/26/17 16:30 Novolog Vial Sliding Scale - SQ ACHS [facility] Protocol Losartan Potassium 100 mg 12/26/17 15:30 Losartan Potassium PO DAILY [facility] Metoprolol Succinate 50 mg 12/27/17 10:00 Toprol Xl - PO DAILY [facility] Morphine Sulfate 2 mg 12/26/17 15:27 Morphine Sulfate IVPUSH Q3H PRN PAIN LEVEL 7 - 10 Ondansetron HCl 4 mg 12/26/17 15:34 Zofran Injection IVPUSH Q8H PRN NAUSEA Oxycodone HCl 5 mg 12/26/17 15:41 Roxicodone - PO Q4H PRN PAIN 1-3 Oxycodone HCl 10 mg 12/26/17 15:42 Roxicodone - PO Q4H PRN PAIN 4-6 ASSESSMENT/PLAN: The patient is a 82 year old female with PMHx of NIDDM, HTN, hyperlipidemia and PAD s/p multiple bilateral femoral angioplasty procedures is admitted to ICU s/ p Femoral-Popliteal bypass. Plan: -Post -op management as per surgical team -Bedrest -Pedal pulse check q2h -Monitor left groin site for bleeding/hematoma, -Continue antihypertensives and statins -Restart aspirin and Lovenox as per surgical team -Insulin sliding scale -Pain meds prn -Advance diet as tolerated Dispo: We will continue to follow the patient. Thank you for this consultative opportunity. 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 - New Patient This patient is new to me today: No - Critical Care Critical Care patient: Yes Total Critical Care Time (in minutes): 35 Critical Care Statement: The care of this patient involved high complexity decision making to prevent further life threatening deterioration of the patient 's condition and/or to evaluate & treat vital organ system(s) failure or risk of failure.
[2017-12-27] MEDS: INSULIN SLIDING SCALE (NOVOLOG) 1 VIAL SQ SCH ×5 (00:20→23:00)
[2017-12-27] MEDS: ATORVASTATIN CA 20 MG TABLET (FP) PO SCH ×2 (00:21→23:00)
[2017-12-27 06:17] LABS: BASO % 0.5 % (0-2.0); EOS % 0.1 % (0-4.5); HEMOGLOBIN 10.9 GM/dL (10.7-15.3); LYMPH % 12.6 % (8-40); MCH 32.7 pg (25.7-33.7); MCHC 35.1 g/dl (32.0-36.0); MEAN CELL VOLUME 92.9 fl (80-96); MEAN PLT VOLUME 6.9 fl (7.5-11.1); MONO % 6.4 % (3.8-10.2); NEUT % 80.4 % (42.8-82.8); PLATELET COUNT 187 K/MM3 (134-434); RBC 3.34 M/mm3 (3.60-5.2); WHITE BLOOD COUNT 7.1 K/mm3 (4.0-10.0)
[2017-12-27 06:32] LABS: CHLORIDE 111 mmol/L (98-107); POTASSIUM 3.9 mmol/L (3.5-5.1); SODIUM 144 mmol/L (136-145)
[2017-12-27 06:39] LABS: ANION GAP 10 (8-16); BLOOD UREA NITROGEN 13 mg/dL (7-18); CO2 23 mmol/L (21-32); CREATININE 0.4 mg/dL (0.55-1.02); GLUCOSE,RANDOM 117 mg/dL (74-106)
--- NOTE | 2017-12-27 08:09 | PN ---
Progress Note (short form) - Note Progress Note: Anesthesia Post-op Note Pt s/p fem/pop bypass under MAC. Pt reports that she is doing well. Reports pain and nausea controlled. Vital Signs Temperature 97.6 F 12/27/17 06:00 Pulse Rate 59 L 12/27/17 06:00 Respiratory Rate 18 12/27/17 06:00 Blood Pressure 128/42 12/27/17 06:00 O2 Sat by Pulse Oximetry (%) 100 12/26/17 23:00 Continue current management. Encourage ISS and OOB when ready. Bowel regimen with pain medications.
[2017-12-27] MEDS ORDERED: CLOPIDOGREL BISULFATE 75 MG TABLET (FP) PO SCH (10:00)
[2017-12-27] MEDS ORDERED: LOSARTAN POTASSIUM 50 MG TABLET (FP) PO SCH (10:00)
[2017-12-27] MEDS ORDERED: ASPIRIN 81 MG CHEWABLE TABLETS PO SCH (10:00)
--- NOTE | 2017-12-27 11:17 | PN ---
Teaching Attending Note Name of Resident: Consuelo Hawk ATTENDING PHYSICIAN STATEMENT I saw and evaluated the patient. I reviewed the resident's note and discussed the case with the resident. I agree with the resident's findings and plan as documented. SUBJECTIVE: Pt seen and examined in the ICU. s/p LLE angiogram found to have an occluded left SFA now s/p angioplasty/LLE femoral-popliteal bypass graft. States pain controlled. No shortness of breath or chest pain. OBJECTIVE: Vital Signs Period Temp Pulse Resp BP Sys/Sims Pulse Ox Last 24 Hr 97.2 F-98.9 F 42-65 12-20 124-174/41-62 98-100 Intake & Output 12/24/17 12/25/17 12/26/17 12/27/17 23:59 23:59 23:59 23:59 Intake Total 1750 725 Output Total 850 Balance 900 725 Weight 44.452 kg 46.13 kg Gen: NAD at rest Heart: RRR Lung: decreased breath sounds at the bases Abd: soft, nontender Ext: pulses intact, dressings with some heme CBC, BMP 12/27/17 05:30 12/27/17 05:30 Active Medications Acetaminophen (Tylenol -) 325 mg PO Q4H PRN PRN Reason: PAIN 1-3 Acetaminophen (Tylenol -) 650 mg PO Q4H PRN PRN Reason: PAIN 4-6 Aspirin (Asa -) 81 mg PO DAILY [facility] Last Admin: 12/27/17 09:26 Dose: 81 mg Atorvastatin Calcium (Lipitor -) 20 mg PO HS [facility] Last Admin: 12/27/17 00:21 Dose: Not Given Clopidogrel Bisulfate (Plavix -) 75 mg PO DAILY [facility] Last Admin: 12/27/17 09:26 Dose: 75 mg Docusate Sodium (Colace -) 100 mg PO BID PRN PRN Reason: CONSTIPATION Sodium Chloride (Normal Saline -) 1,000 mls @ 75 mls/hr IV ASDIR [facility] Last Admin: 12/26/17 16:30 Dose: 600 mls Lactated Ringer's (Lactated Ringers Solution) 1,000 mls @ 75 mls/hr IV ASDIR [facility] Last Admin: 12/27/17 00:20 Dose: Not Given Insulin Aspart (Novolog Vial Sliding Scale -) 1 vial SQ [facility]; Protocol Last Admin: 12/27/17 10:50 Dose: Not Given Losartan Potassium (Cozaar -) 100 mg PO DAILY [facility] Last Admin: 12/27/17 09:26 Dose: 100 mg Metoprolol Succinate (Toprol Xl -) 50 mg PO DAILY [facility] Last Admin: 12/27/17 09:26 Dose: 50 mg Morphine Sulfate (Morphine Sulfate) 2 mg IVPUSH Q3H PRN PRN Reason: PAIN LEVEL 7 - 10 Ondansetron HCl (Zofran Injection) 4 mg IVPUSH Q8H PRN PRN Reason: NAUSEA Oxycodone HCl (Roxicodone -) 5 mg PO Q4H PRN PRN Reason: PAIN 1-3 Oxycodone HCl (Roxicodone -) 10 mg PO Q4H PRN PRN Reason: PAIN 4-6 ASSESSMENT AND PLAN: PAD/Occluded SFA s/p LLE angiogram/angioplasty/fem-pop bypass graft HTN DM Hyperlipidemia - pain control - monitor pulse checks - incentive spirometry - IVF - bowel regimen - PO/activity/DVT prophylaxis/dispostion per surgery
--- NOTE | 2017-12-27 14:31 | PN ---
Physical Exam: SUBJECTIVE: Patient seen and examined at bedside. patient states the pain is OK , a little bit of pain in the ankle but felt it was controlled. she denies any nausea, no SOB or CP. OBJECTIVE: Vital Signs Period Temp Pulse Resp BP Sys/Sims Pulse Ox Last 24 Hr 97.2 F-98.9 F 42-68 12-20 124-174/40-62 98-100 GENERAL: The patient is awake, alert, and fully oriented, in no acute distress.. LUNGS: Breath sounds equal, clear to auscultation bilaterally, no wheezes, no crackles, no accessory muscle use. HEART: Regular rate and rhythm, S1, S2 without murmur, rub or gallop. ABDOMEN: Soft, nontender, nondistended, normoactive bowel sounds, no guarding, no rebound, no hepatosplenomegaly, no masses. EXTREMITIES: 2+ pulses, warm, well-perfused, no edema. LLE dressing benedicto/dry/ intact with +dp pulse and warm extremity. NEUROLOGICAL: Cranial nerves II through XII grossly intact. Normal speech, gait not observed. PSYCH: Normal mood, normal affect. SKIN: Warm, dry, normal turgor, no rashes or lesions noted Laboratory Results - last 24 hr 12/27/17 12/27/17 12/27/17 05:30 05:30 10:38 WBC 7.1 RBC 3.34 L Hgb 10.9 Hct 31.0 L MCV 92.9 MCH 32.7 D MCHC 35.1 RDW 16.0 H Plt Count 187 D MPV 6.9 L Absolute Neuts (auto) 5.7 Neutrophils % 80.4 Lymphocytes % 12.6 D Monocytes % 6.4 Eosinophils % 0.1 D Basophils % 0.5 Nucleated RBC % 0 Sodium 144 Potassium 3.9 Chloride 111 H Carbon Dioxide 23 Anion Gap 10 BUN 13 Creatinine 0.4 L Creat Clearance w eGFR > 60 POC Glucometer 52.18019 Random Glucose 117 H Calcium 8.0 L Active Medications Generic Name Dose Route Start Last Admin Trade Name Freq PRN Reason Stop Dose Admin Acetaminophen 325 mg 12/26/17 15:41 Tylenol - PO Q4H PRN PAIN 1-3 Acetaminophen 650 mg 12/26/17 15:42 Tylenol - PO Q4H PRN PAIN 4-6 Aspirin 81 mg 12/27/17 10:00 12/27/17 09:26 Asa - PO 81 mg DAILY [facility] Administration Atorvastatin Calcium 20 mg 12/26/17 22:00 12/27/17 00:21 Lipitor - PO Not Given HS [facility] Clopidogrel Bisulfate 75 mg 12/27/17 10:00 12/27/17 09:26 Plavix - PO 75 mg DAILY [facility] Administration Docusate Sodium 100 mg 12/26/17 15:27 Colace - PO BID PRN CONSTIPATION Sodium Chloride 1,000 mls @ 75 mls/hr 12/26/17 15:45 12/26/17 16:30 Normal Saline - IV 600 mls ASDIR [facility] Administration Lactated Ringer's 1,000 mls @ 75 mls/hr 12/26/17 18:15 12/27/17 00:20 Lactated Ringers Solution IV Not Given ASDIR [facility] Insulin Aspart 1 vial 12/26/17 16:30 12/27/17 10:50 Novolog Vial Sliding Scale - SQ Not Given ACHS [facility] Protocol Losartan Potassium 100 mg 12/27/17 10:00 12/27/17 09:26 Cozaar - PO 100 mg DAILY [facility] Administration Metoprolol Succinate 50 mg 12/27/17 10:00 12/27/17 09:26 Toprol Xl - PO 50 mg DAILY [facility] Administration Morphine Sulfate 2 mg 12/26/17 15:27 Morphine Sulfate IVPUSH Q3H PRN PAIN LEVEL 7 - 10 Ondansetron HCl 4 mg 12/26/17 15:34 Zofran Injection IVPUSH Q8H PRN NAUSEA Oxycodone HCl 5 mg 12/26/17 15:41 Roxicodone - PO Q4H PRN PAIN 1-3 Oxycodone HCl 10 mg 12/26/17 15:42 Roxicodone - PO Q4H PRN PAIN 4-6 ASSESSMENT/PLAN: 82 y/o female with PMH of DM,HTN,HLD, PAD s/p multiple femoral bypasses is now POd #1 from LLE angiogram, angiplasty of common femoral, external iliac artery, angio of popliteal artery and LLE femoral bypass. patient is experiencing some pain, mainly in the ankle, but feels it is controlled with her pain medications. 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 - New Patient This patient is new to me today: Yes Date on this admission: 12/27/17 - Critical Care Critical Care patient: Yes Total Critical Care Time (in minutes): 35 Critical Care Statement: The care of this patient involved high complexity decision making to prevent further life threatening deterioration of the patient 's condition and/or to evaluate & treat vital organ system(s) failure or risk of failure.
[2017-12-27] MEDS: SODIUM CHLORIDE 1,000 ML IV SCH (16:25)
[2017-12-28] MEDS: SODIUM CHLORIDE 1,000 ML IV SCH ×2 (00:02→06:34)
[2017-12-28] MEDS ORDERED: ACETAMINOPHEN 325 MG TABLET (FP) PO PRN ×2 (02:21)
[2017-12-28] MEDS ORDERED: ONDANSETRON 4 MG/2 ML VIAL IVPUSH PRN (02:21)
[2017-12-28] MEDS ORDERED: DOCUSATE SODIUM 100 MG CAPSULE (FP) PO PRN (02:21)
[2017-12-28] MEDS ORDERED: MORPHINE SULFATE 2 MG/ML VIAL IVPUSH PRN (02:21)
[2017-12-28] MEDS ORDERED: oxyCODONE HCL 5 MG TABLET PO PRN ×2 (02:21)
[2017-12-28] MEDS: LACTATED RINGERS SOLUTION 1,000 ML IV SCH (06:31)
[2017-12-28] MEDS: INSULIN SLIDING SCALE (NOVOLOG) 1 VIAL SQ SCH ×4 (06:34→21:42)
[2017-12-28 08:02] LABS: ALBUMIN 2.6 g/dl (3.4-5.0); ANION GAP 6 (8-16); BASO % 0.5 % (0-2.0); BILIRUBIN,TOTAL 0.7 mg/dL (0.2-1.0); BLOOD UREA NITROGEN 8 mg/dL (7-18); CALCIUM 7.4 mg/dL (8.5-10.1); CHLORIDE 111 mmol/L (98-107); CO2 25 mmol/L (21-32); CREATININE 0.4 mg/dL (0.55-1.02); EOS % 0.5 % (0-4.5); GLUCOSE,RANDOM 91 mg/dL (74-106); HEMATOCRIT 27.2 % (32.4-45.2); HEMOGLOBIN 9.6 GM/dL (10.7-15.3); MAGNESIUM 1.9 mg/dL (1.8-2.4); MCHC 35.4 g/dl (32.0-36.0); MEAN CELL VOLUME 93.3 fl (80-96); MEAN PLT VOLUME 7.4 fl (7.5-11.1); MONO % 13.3 % (3.8-10.2); NEUT % 69.7 % (42.8-82.8); PHOSPHOROUS 2.1 mg/dL (2.5-4.9); PLATELET COUNT 160 K/MM3 (134-434); POTASSIUM 3.6 mmol/L (3.5-5.1); RBC 2.92 M/mm3 (3.60-5.2); RDW 16.3 % (11.6-15.6); SGOT/AST 11 U/L (15-37); SGPT/ALT 12 U/L (12-78); SODIUM 142 mmol/L (136-145); TOT PROT 4.9 g/dl (6.4-8.2); WHITE BLOOD COUNT 6.7 K/mm3 (4.0-10.0)
[2017-12-28 08:03] LABS: ALK PHOS 38 U/L (45-117)
[2017-12-28] MEDS: LOSARTAN POTASSIUM 50 MG TABLET (FP) PO SCH (10:52)
[2017-12-28] MEDS: CLOPIDOGREL BISULFATE 75 MG TABLET (FP) PO SCH (10:52)
[2017-12-28] MEDS: ASPIRIN 81 MG CHEWABLE TABLETS PO SCH (10:52)
[2017-12-28] MEDS: ATORVASTATIN CA 20 MG TABLET (FP) PO SCH (21:41)
[2017-12-29] MEDS: INSULIN SLIDING SCALE (NOVOLOG) 1 VIAL SQ SCH ×4 (07:05→22:15)
[2017-12-29] MEDS: SODIUM CHLORIDE 1,000 ML IV SCH (07:07)
[2017-12-29] MEDS: LACTATED RINGERS SOLUTION 1,000 ML IV SCH (07:07)
[2017-12-29] MEDS: ASPIRIN 81 MG CHEWABLE TABLETS PO SCH (11:11)
[2017-12-29] MEDS: CLOPIDOGREL BISULFATE 75 MG TABLET (FP) PO SCH (11:11)
[2017-12-29] MEDS: LOSARTAN POTASSIUM 50 MG TABLET (FP) PO SCH (11:11)
[2017-12-29] MEDS ORDERED: INSULIN (NOVOLOG) ASPART 100 UNITS/ML 10ML VIAL ONE (12:05)
[2017-12-29] MEDS: ATORVASTATIN CA 20 MG TABLET (FP) PO SCH (22:12)
[2017-12-30] MEDS: LACTATED RINGERS SOLUTION 1,000 ML IV SCH (06:46)
[2017-12-30] MEDS: SODIUM CHLORIDE 1,000 ML IV SCH (06:46)
[2017-12-30] MEDS: INSULIN SLIDING SCALE (NOVOLOG) 1 VIAL SQ SCH ×2 (06:49→11:46)
[2017-12-30] MEDS: LOSARTAN POTASSIUM 50 MG TABLET (FP) PO SCH (09:41)
[2017-12-30] MEDS: ASPIRIN 81 MG CHEWABLE TABLETS PO SCH (09:41)
[2017-12-30] MEDS: CLOPIDOGREL BISULFATE 75 MG TABLET (FP) PO SCH (09:41)
[2017-12-30] MEDS ORDERED: INSULIN (LEVEMIR) 100 UNITS/ML UNITS SQ ONE (13:22)
[2017-12-30] MEDS ORDERED: INSULIN (NOVOLOG) ASPART 100 UNITS/ML 10ML VIAL ONE ×2 (13:23→16:57)
[2017-12-30 15:08] VITALS: BP 129/60; PULSE 65; TEMP 99.3
--- NOTE | 2018-01-09 16:47 | OP ---
DATE OF OPERATION: DATE OF DICTATION: 01/09/2018 PREOPERATIVE DIAGNOSIS: Left lower extremity ischemia with superficial femoral artery disease status post multiple atherectomy and angioplasties. POSTOPERATIVE DIAGNOSIS: Left lower extremity ischemia with superficial femoral artery disease status post multiple atherectomy and angioplasties. OPERATIVE PROCEDURE: Left femoral artery angiogram, followed by left femoral to supragenicular popliteal bypass with a 6-mm Douglas-Tunde graft and angiogram and balloon angioplasty of the distal popliteal artery and the tibioperoneal trunk with a 5-mm balloon. SURGEON: Ritika Mclean MD CUSTOMER COMPLAINT SERVICE SUPERVISOR: [place] ANESTHESIA: Local/sedation. Patient has had multiple angioplasties and atherectomies bilaterally, and finally, the patient developed significant pain in the left leg with some discoloration of the toes, rest pain. 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 So, with this, after explaining the risks and benefits, the patient was brought to the operating room. Groin and the leg were prepped and draped in the usual manner. Intravenous antibiotic was given. Local with Marcaine was injected in the left groin, and common femoral artery was isolated above the previous incision where the patching had been done for the superficial femoral artery. It was encircled with a Vesseloop where it was found to be soft, and again, [id number] popliteal artery was exposed. It was found to be severely thickened and severe muscular hyperplasia was identified. The lumen was opened, and there was decent backbleeding from below the knee, popliteal segment. So, a subsartorial tunnel was created, and a 6-mm Douglas-Tunde graft was brought through the tunnel. The proximal and the distal anastomosis were done to the common femoral on the top and to the popliteal above the knee popliteal artery; 6-0 Prolene was used. A continuous parachute technique was applied, and also, local heparin was injected in the arteries, and also systemic heparin was given. A completion angiogram was done which again revealed evidence of very small and narrowed popliteal artery below the knee, and so it was dilated with a 5-mm balloon with adequate results and the tibioperoneal trunk with 4-mm balloon. The final angiogram showed good flow into the foot with 1-vessel runoff, and the entry point of the graft was sutured with 6-0 Prolene. After adequate hemostasis, the subcutaneous tissue and skin were closed, and the patient went to the recovery room. Patient also had a significant drop in the hemoglobin and hematocrit, probably from old standing rather than acute blood loss, because estimated blood loss during this course of surgery was less than 100 mL, but the patient was stable with no complaints. The low hemoglobin was addressed but not treated. Garo [id number]
== END 2017-12-30 17:30 | DRG 253 ==
LOC: EDSTATUS 13:00 → JSAMEDAYSX 12-26 09:46 → JICU 12-26 23:23 → J8W 12-28 02:10
PROVIDERS: ADMIT Surgery Vascular Surgery; ATTEND Surgery Vascular Surgery
PROC: 047 Lower Arteries, Dilation (ICD-10-PCS; 2017-12-26)
PROC: B40DYZZ Plain Radiography of Aorta and Bilateral Lower Extremity Arteries using Other Contrast (ICD-10-PCS; 2017-12-26)
PROC: 041L0JL Bypass Left Femoral Artery to Popliteal Artery with Synthetic Substitute, Open Approach (ICD-10-PCS; principal; 2017-12-26 11:30)
PROC: 047N0ZZ Dilation of Left Popliteal Artery, Open Approach (ICD-10-PCS; 2017-12-26 11:30)
DX: I77.1 Stricture of artery (principal); R71.0 Precipitous drop in hematocrit; R64 Cachexia; Z68.1 Body mass index [BMI] 19.9 or less, adult; I70.219 Atherosclerosis of native arteries of extremities with intermittent claudication, unspecified extremity; E11.9 Type 2 diabetes mellitus without complications; E78.5 Hyperlipidemia, unspecified; I10 Essential (primary) hypertension
CPT/HCPCS: 36415; 76000-TC-FY; 80048; 80053; 82962; 83735; 84100; 85025; 86850; 86900; 86901; 94760; 97116-GP; 97161-GP; J1644; J7030

== ENCOUNTER → 2018-12-12 | Emergency (ER) | payer OTHER | LOC: FER 08:53 ==

== ENCOUNTER 2019-01-28 06:42 | Inpatient (IN) | payer OTHER, MEDICARE ==
[2019-01-28 07:31] LABS: BASO % 0.7 % (0-2.0); EOS % 2.2 % (0-4.5); HEMATOCRIT 34.2 % (32.4-45.2); HEMOGLOBIN 11.6 GM/dl (10.7-15.3); LYMPH % 26.2 % (8-40); MCHC 33.8 g/dl (32.0-36.0); MEAN CELL VOLUME 91.7 fl (80-96); MEAN PLT VOLUME 7.3 fl (7.5-11.1); MONO % 7.3 % (3.8-10.2); NEUT % 63.6 % (42.8-82.8); PLATELET COUNT 312 K/MM3 (134-434); RBC 3.73 M/mm3 (3.60-5.2); RDW 13.5 % (11.6-15.6); WHITE BLOOD COUNT 5.4 K/mm3 (4.0-10.8)
[2019-01-28 07:38] LABS: ALBUMIN 3.9 g/dl (3.4-5.0); BILIRUBIN,TOTAL 0.6 mg/dl (0.2-1); CALCIUM 9.1 mg/dl (8.5-10); CREATININE 0.7 mg/dl (0.55-1.3); POTASSIUM 4.6 mmol/L (3.5-5.1); TOT PROT 6.8 g/dl (6.4-8.2)
[2019-01-28 07:41] LABS: INR 1.01 (0.82-1.09); PROTHROMBIN TIME (PATIENT) 11.3 SEC (10.2-13.0)
--- NOTE | 2019-01-28 08:12 | PDOC ---
History of Present Illness - General Chief Complaint: Bleeding from Anus Stated Complaint: HEMORRHOID BLEED Time Seen by Provider: 01/28/19 07:11 - History of Present Illness Initial Comments: 01/28/19 09:02 83yo F hx PVD, PAD s/p LE stents, HTN, HL, presents to the ED with episode of BRBPR. Pt reports having a normal BM this morning, then noted having a large bright red bloody bowel movement. Unknown if there were clots. Reports it filled up the toilet at which point she came to the ED. Denies rectal or abdominal pain. Pt reports very similar episode in November, was seen here, but bleeding stopped. At the time, pt was recommended to f/u with Dr. Vaughn and Dr. Michael but did not. Pt reports that since then, she has had small amounts of bright red blood per rectum after BMs but no large volume episodes. Reports hx hemorrhoids. She is on plavix for her stents which she took yesterday. On ROS, pt notes 7 pound unintentional weight loss and poor appetite over last few months. Does not remember when her last colonoscopy was. Denies fevers, chills, CP, SOB, dizziness, focal weakness/numbness, urinary sxs. Reports chronic RLE edema since stent placement and 3 months of painless discoloration to her L distal foot. Past History - Past Medical History Allergies/Adverse Reactions: Allergies Allergy/AdvReac Type Severity Reaction Status Date / Time No Known Allergies Allergy Verified 01/28/19 06:47 Home Medications: Ambulatory Orders Aspirin 81 mg PO DAILY 05/21/14 metFORMIN HCL [Metformin HCl] 500 mg PO DAILY 11/03/16 Clopidogrel Bisulfate [Plavix -] 75 mg PO DAILY 03/07/17 Metoprolol Succinate 50 mg PO DAILY 12/24/17 Amlodipine Besylate [Norvasc -] 5 mg PO BID 12/12/18 Atorvastatin Ca [Lipitor] 80 mg PO HS 12/12/18 Telmisartan 80 mg PO DAILY 12/12/18 Cilostazol [Pletal -] 25 mg PO BID 01/28/19 Anemia: No Cardiac Disorders: Yes (silent NM years ago) COPD: No Diabetes: Yes HTN: Yes Hypercholesterolemia: Yes Thyroid Disease: Yes Other medical history: PAD in legs - Suicide/Smoking/Psychosocial Hx Smoking History: Never smoked Have you smoked in the past 12 months: No Information on smoking cessation initiated: No Hx Alcohol Use: No Drug/Substance Use Hx: No Substance Use Type: None Review of Systems - Review of Systems Comments:: 01/28/19 09:31 GENERAL/CONSTITUTIONAL: No fever or chills. No weakness. HEAD, EYES, EARS, NOSE AND THROAT: No change in vision. No ear pain or discharge. No sore throat. GASTROINTESTINAL: No nausea, vomiting, diarrhea or constipation. +rectal bleeding GENITOURINARY: No dysuria, frequency, or change in urination. CARDIOVASCULAR: No chest pain or shortness of breath. RESPIRATORY: No cough, wheezing, or hemoptysis. MUSCULOSKELETAL: No joint or muscle swelling or pain. No neck or back pain. SKIN: No rash NEUROLOGIC: No headache, vertigo, loss of consciousness, or change in strength/ sensation. ENDOCRINE: No increased thirst. +weight loss HEMATOLOGIC/LYMPHATIC: No anemia, easy bleeding, or history of blood clots. ALLERGIC/IMMUNOLOGIC: No hives or skin allergy. *Physical Exam - Vital Signs Last Vital Signs Temp Pulse Resp BP Pulse Ox 98.7 F 80 18 150/74 100 01/28/19 06:43 01/28/19 06:43 01/28/19 06:43 01/28/19 06:43 01/28/19 07:09 - Physical Exam Comments: 01/28/19 09:35 GENERAL: Awake, alert, and fully oriented, in no acute distress. Pleasant. HEAD: No signs of trauma EYES: Sclera anicteric, conjunctiva clear ENT: Oropharynx clear without exudates. Moist mucosa NECK: Normal ROM, supple, no lymphadenopathy, JVD, or masses LUNGS: Breath sounds equal, clear to auscultation bilaterally. No wheezes, and no crackles HEART: Regular rate and rhythm, normal S1 and S2, no murmurs, rubs or gallops ABDOMEN: Soft, nontender, normoactive bowel sounds. No guarding, no rebound. No masses RECTAL: +non thrombosed, non bleeding external hemorrhoid. +mass - ?possible rectal prolapse with dried blood EXTREMITIES: +R calf edema (pt and daughter note is chronic and unchanged), + slightly dusky but warm and well perfused distal L foot which pt and daughter note has appeared that way for months and has been evaluated by Dr. Simpson ( vascular) NEUROLOGICAL: Normal speech, cranial nerves intact, equal strength and senstion b/l SKIN: Warm, Dry, normal turgor, no rashes or lesions noted. ED Treatment Course - LABORATORY CBC & Chemistry Diagram: 01/28/19 07:10 01/28/19 07:10 - ADDITIONAL ORDERS Additional order review: 01/28/19 07:10 RBC 3.73 MCV 91.7 MCHC 33.8 RDW 13.5 MPV 7.3 L Neutrophils % 63.6 Lymphocytes % 26.2 Monocytes % 7.3 Eosinophils % 2.2 Basophils % 0.7 Medical Decision Making - Medical Decision Making 01/28/19 09:38 83yo F hx MMP including PAD on plavix presents to the ED with large volume painless hematochezia for 2nd time in 2 months. +smaller episodes of BRB in btwn Vitals stable DDx includes diverticulosis vs hemorrhoids vs colon ca Hct 34 today, down from 41 two months ago consistent with bleeding Pt does not remember last colonsocopy Case discussed with Dr. Michael, recommends Dr. Vaughn consult, admission for bowel prep, hold plavix Case discussed with Dr. Vaughn who will evaluate pt today for likely colonoscopy in the next few days Hospitalist has been called for admission (microblog down) 01/28/19 10:[address] Vaughn, recommends clear liquid diet, likely scope tomorrow morning Case discussed with DAVID Hankins Pt accepted for admission to Dr. Benavides's service Case discussed in detail with admitting physician including history, physical exam and ancillary studies. Admitting physician has assumed care for the patient, will follow all pending diagnostics and will complete the evaluation and treatment. *DC/Admit/Observation/Transfer Diagnosis at time of Disposition: Rectal bleeding - Discharge Dispostion Condition at time of disposition: Stable - Referrals - Patient Instructions - Post Discharge Activity - Attestations Physician Attestion: 01/28/19 09:41 I, Dr. Cristian Hernandez MD, attest that this document has been prepared under my direction and personally reviewed by me in its entirety. I further attest, that it accurately reflects all work, treatment, procedures and medical decision -making performed by me.
--- NOTE | 2019-01-28 11:32 | EKG ---
Test Reason : Blood Pressure : / mmHG Vent. Rate : 059 BPM Atrial Rate : 059 BPM P-R Int : 162 ms QRS Dur : 080 ms QT Int : 438 ms P-R-T Axes : 026 -44 254 degrees QTc Int : 433 ms POOR DATA QUALITY, INTERPRETATION MAY BE ADVERSELY AFFECTED SINUS BRADYCARDIA LEFT AXIS DEVIATION CANNOT RULE OUT ANTEROSEPTAL INFARCT (CITED ON OR BEFORE 04-MAR-2017) T WAVE ABNORMALITY, CONSIDER INFEROLATERAL ISCHEMIA ABNORMAL ECG WHEN COMPARED WITH ECG OF 04-MAR-2017 11:19, T WAVE INVERSION NOW EVIDENT IN INFERIOR LEADS INVERTED T WAVES HAVE REPLACED NONSPECIFIC T WAVE ABNORMALITY IN LATERAL LEADS Confirmed by ISHA ZENDEJAS, KARLIE ([id number]) on 01/28/2019 11:32:21 AM Referred By: HEIDI SOMMERS Confirmed By:KARLIE VIEIRA MD
[2019-01-28 11:52] VITALS: BMI 16.2
--- NOTE | 2019-01-28 14:00 | PN ---
Progress Note (short form) - Note Progress Note: Patient seen in ED and consult note dictated. Patient with episode of BRBPR last month and again today (with drop in Hct). Has ?rectal lesion (vs hemorrhoid/prolapse) ; has not had prior colonoscopy Hx PVD, AODM, HLD, GERD Labs per EHR In view of recent LGI bleeding, drop in Hct (along with use of Plavix and ASA) will arrange for colonoscopy to evluate further. Hold Plavix and ASA Monitor CBC, vital signs
[2019-01-28] MEDS ORDERED: PEG/ELECTROLYTES (NULYTELY) 4,000 ML BOTTLE PO ONE (14:15)
--- NOTE | 2019-01-28 15:17 | CONS ---
DATE OF CONSULTATION: 01/28/2019 HISTORY: Asked to evaluate this 83-year-old female admitted with lower GI bleeding. The patient has a past medical history of peripheral vascular disease and prior femoral popliteal stents, hypertension, hyperlipidemia, and gastroesophageal reflux. She also has type 2 diabetes mellitus. She was seen by me in the office last year for peptic symptoms and likely reflux. She has not had a colonoscopy to date. Last month, she presented to the emergency room with some bright red blood per rectum and was told to follow up in my office but did not follow through. She presents now with another episode of bright red blood per rectum. She is not sure if there were clots, but she reported a fair amount of blood. The patient was seen in the emergency room and noted to have a hemoglobin of 11.6 and hematocrit of 34.2%, which are lower than her baseline. She had a white count of 5.5 and a platelet count of 312,000. Her INR was 1.01. Her electrolytes were unremarkable with a BUN of 8 and a creatinine of 0.7. The patient is on both aspirin and Plavix. The patient denies any abdominal pain, fever, chills, nausea, vomiting. She has been noted to have hemorrhoids in the past. PHYSICAL EXAMINATION: General: The patient is currently resting in the emergency room in no distress. HEENT: She has pink conjunctivae. Abdomen: Soft, flat abdomen. Normoactive bowel sounds and no tenderness. Rectal: She was noted to have some nonthrombosed, nonbleeding external hemorrhoids and possible rectal prolapse. Patient is an 83-year-old female with a 2nd episode of a large amount of bright red blood per rectum over the past several months this time with a drop in her hemoglobin and hematocrit. The patient has not had a colonoscopy to date and remains on both Plavix and aspirin. We will hold both of these blood thinners and arrange for colonoscopy in the morning after a GoLYTELY prep. Further recommendations to follow. SHAWN BULLOCK M.D. [id number]
--- NOTE | 2019-01-28 16:49 | HP ---
CHIEF COMPLAINT: Bleeding from rectum PCP: Dr. Michael Cardiology: Dr. Block Vascular: Dr. Dao; Dr. Mclean HISTORY OF PRESENT ILLNESS: 83yo F hx PVD, PAD s/p LE stents, HTN, HL, presents to the ED with episode of BRBPR. Pt reports having a normal BM this morning, then noted having a large bright red bloody bowel movement. Unknown if there were clots. Reports it filled up the toilet at which point she came to the ED. Denies rectal or abdominal pain. Pt reports very similar episode in November, was seen here, but bleeding stopped. At the time, pt was recommended to f/u with Dr. Vaughn and Dr. Michael but did not. Pt reports that since then, she has had small amounts of bright red blood per rectum after BMs but no large volume episodes. Reports hx hemorrhoids. She is on plavix for her stents which she took yesterday. On ROS, pt notes 7 pound unintentional weight loss and poor appetite over last few months. Does not remember when her last colonoscopy was. Denies fevers, chills, CP, SOB, dizziness, focal weakness/numbness, urinary sxs. Reports chronic RLE edema since stent placement and 3 months of painless discoloration to her L distal foot. 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; lives alone, son and daughter closeby; independent ADLs; last year Smoking: no Alcohol: no Drugs: no Family History: reviewed and non-contributory Allergies No Known Allergies Allergy (Verified 01/28/19 06:47) HOME MEDICATIONS: Home Medications Medication Instructions Recorded Aspirin 81 mg PO DAILY 05/21/14 metFORMIN HCL [Metformin HCl] 500 mg PO DAILY 11/03/16 Clopidogrel Bisulfate [Plavix -] 75 mg PO DAILY 03/07/17 Metoprolol Succinate 50 mg PO DAILY 12/24/17 Amlodipine Besylate [Norvasc -] 5 mg PO BID 12/12/18 Atorvastatin Ca [Lipitor] 80 mg PO HS 12/12/18 Telmisartan 80 mg PO DAILY 12/12/18 Cilostazol [Pletal -] 25 mg PO BID 01/28/19 REVIEW OF SYSTEMS CONSTITUTIONAL: Absent: fever, chills, diaphoresis, generalized weakness, malaise, loss of appetite, weight change HEENT: Absent: rhinorrhea, nasal congestion, throat pain, throat swelling, difficulty swallowing, mouth swelling, ear pain, eye pain, visual changes CARDIOVASCULAR: Absent: chest pain, syncope, palpitations, irregular heart rate, lightheadedness , peripheral edema RESPIRATORY: Absent: cough, shortness of breath, dyspnea with exertion, orthopnea, wheezing, stridor, hemoptysis GASTROINTESTINAL: Absent: abdominal pain, abdominal distension, nausea, vomiting, diarrhea, constipation, melena, hematochezia GENITOURINARY: Absent: dysuria, frequency, urgency, hesitancy, hematuria, flank pain, genital pain MUSCULOSKELETAL: Absent: myalgia, arthralgia, joint swelling, back pain, neck pain SKIN: Absent: rash, itching, pallor HEMATOLOGIC/IMMUNOLOGIC: Absent: easy bleeding, easy bruising, lymphadenopathy, frequent infections ENDOCRINE: Absent: unexplained weight gain, unexplained weight loss, heat intolerance, cold intolerance NEUROLOGIC: Absent: headache, focal weakness or paresthesias, dizziness, unsteady gait, seizure, mental status changes, bladder or bowel incontinence PSYCHIATRIC: Absent: anxiety, depression, suicidal or homicidal ideation, hallucinations. PHYSICAL EXAMINATION Vital Signs - 24 hr 01/28/19 01/28/19 01/28/19 06:43 07:09 10:54 Temperature 98.7 F 98.3 F Pulse Rate 80 Pulse Rate [ 67 Left] Respiratory 18 17 Rate Blood Pressure 150/74 Blood Pressure 166/61 [Right Arm] O2 Sat by Pulse 100 100 100 Oximetry (%) 01/28/19 01/28/19 11:20 11:33 Temperature 98 F 98.0 F Pulse Rate 68 63 Pulse Rate [ Left] Respiratory 16 17 Rate Blood Pressure 144/63 144/63 Blood Pressure [Right Arm] O2 Sat by Pulse 100 Oximetry (%) GENERAL: Awake, alert, and fully oriented, in no acute distress. HEAD: Normal with no signs of trauma. EYES: Pupils equal, round and reactive to light, extraocular movements intact, sclera anicteric, conjunctiva clear. No lid lag. EARS, NOSE, THROAT: Ears normal, nares patent, oropharynx clear without exudates. Moist mucous membranes. NECK: Normal range of motion, supple without lymphadenopathy, JVD, or masses. LUNGS: Breath sounds equal, clear to auscultation bilaterally. No wheezes, and no crackles. No accessory muscle use. HEART: Regular rate and rhythm, normal S1 and S2 without murmur, rub or gallop. ABDOMEN: Soft, nontender, not distended, normoactive bowel sounds, no guarding, no rebound, no masses. No hepatomegaly or splenomegaly. MUSCULOSKELETAL: Normal range of motion at all joints. No bony deformities or tenderness. No CVA tenderness. UPPER EXTREMITIES: 2+ pulses, warm, well-perfused. No cyanosis. No clubbing. No peripheral edema. LOWER EXTREMITIES: 2+ pulses, warm, well-perfused. No calf tenderness. No peripheral edema. NEUROLOGICAL: Cranial nerves II-XII intact. Normal speech. Normal gait. PSYCHIATRIC: Cooperative. Good eye contact. Appropriate mood and affect. SKIN: Warm, dry, normal turgor, no rashes or lesions noted, normal capillary refill. Laboratory Results - last 24 hr 01/28/19 01/28/19 01/28/19 07:10 07:10 07:10 WBC 5.4 RBC 3.73 Hgb 11.6 Hct 34.2 D MCV 91.7 MCH 31.0 MCHC 33.8 RDW 13.5 Plt Count 312 MPV 7.3 L Absolute Neuts (auto) 3.5 Neutrophils % 63.6 Lymphocytes % 26.2 Monocytes % 7.3 Eosinophils % 2.2 Basophils % 0.7 PT with INR INR PTT (Actin FS) 31.5 Sodium 137 Potassium 4.6 Chloride 105 Carbon Dioxide 25 Anion Gap 7 L BUN 8.0 Creatinine 0.7 Est GFR (CKD-EPI)AfAm 94.18 Est GFR (CKD-EPI)NonAf 81.26 Random Glucose 155 H Calcium 9.1 Total Bilirubin 0.6 AST 21 ALT 18 Alkaline Phosphatase 59 Total Protein 6.8 Albumin 3.9 Stool Occult Blood Blood Type Antibody Screen 01/28/19 01/28/19 01/28/19 07:10 07:10 07:45 WBC RBC Hgb Hct MCV MCH MCHC RDW Plt Count MPV Absolute Neuts (auto) Neutrophils % Lymphocytes % Monocytes % Eosinophils % Basophils % PT with INR 11.3 INR 1.01 PTT (Actin FS) Sodium Potassium Chloride Carbon Dioxide Anion Gap BUN Creatinine Est GFR (CKD-EPI)AfAm Est GFR (CKD-EPI)NonAf Random Glucose Calcium Total Bilirubin AST ALT Alkaline Phosphatase Total Protein Albumin Stool Occult Blood Negative Blood Type Cancelled Antibody Screen Cancelled 01/28/19 10:58 WBC RBC Hgb Hct MCV MCH MCHC RDW Plt Count MPV Absolute Neuts (auto) Neutrophils % Lymphocytes % Monocytes % Eosinophils % Basophils % PT with INR INR PTT (Actin FS) Sodium Potassium Chloride Carbon Dioxide Anion Gap BUN Creatinine Est GFR (CKD-EPI)AfAm Est GFR (CKD-EPI)NonAf Random Glucose Calcium Total Bilirubin AST ALT Alkaline Phosphatase Total Protein Albumin Stool Occult Blood Blood Type B POSITIVE Antibody Screen ASSESSMENT/PLAN: 83 year-old female with a PMH significant for HTN, HLD, Type II NIDDM, peripheral arterial disease s/p multiple bilateral femoral angioplasty procedures with stents. On triple anti-platelet therapy. Lower GI bleed --hemodynamically stable --hold ASA, Plavix, Pletil --colon prep today --colonoscopy tomorrow with Dr. Vaughn --repeat ECG Peripheral arterial disease s/p b/l angioplasties and stents --follows regularly with Dr. Dao --hold anti-platelets for procedure tomorrow Hypertension --BP stable --continue amlodipine, Toprol XL, telmisartan Hyperlipidemia --continue atorvastatin Type II NIDDM --continue metformin --Novolog sliding scale coverage FEN Fluids: NS @ 100mL/hr after midnight while NPO Electrolytes: replete as indicated DVT prophylaxis: hold chemical prophylaxis: SCDs, oob, ambulation Dispo: continues to require inpatient care. Full code. Visit type - Emergency Visit Emergency Visit: Yes ED Registration Date: 01/28/19 Care time: The patient presented to the Emergency Department on the above date and was hospitalized for further evaluation of their emergent condition. - New Patient This patient is new to me today: Yes Date on this admission: 01/28/19 - Critical Care Critical Care patient: No
[2019-01-28] MEDS ORDERED: ATORVASTATIN CA 80 MG TABLET (FP) PO SCH (22:00)
[2019-01-28] MEDS: INSULIN SLIDING SCALE (NOVOLOG) 1 VIAL SQ SCH (22:03)
[2019-01-28] MEDS: amLODIPine BESYLATE 5 MG TABLET (FP) PO SCH (22:03)
[2019-01-29] MEDS ORDERED: SODIUM CHLORIDE 1,000 ML IV SCH (00:01)
[2019-01-29] MEDS: INSULIN SLIDING SCALE (NOVOLOG) 1 VIAL SQ SCH ×2 (06:54→11:26)
[2019-01-29 08:23] LABS: BASO % 1.4 % (0-2.0); EOS % 3.6 % (0-4.5); HEMATOCRIT 34.3 % (32.4-45.2); HEMOGLOBIN 11.4 GM/dl (10.7-15.3); LYMPH % 29.3 % (8-40); MCH 30.6 pg (25.7-33.7); MCHC 33.3 g/dl (32.0-36.0); MEAN PLT VOLUME 7.2 fl (7.5-11.1); MONO % 9.6 % (3.8-10.2); NEUT % 56.1 % (42.8-82.8); PLATELET COUNT 292 K/MM3 (134-434); RBC 3.73 M/mm3 (3.60-5.2); RDW 13.1 % (11.6-15.6); WHITE BLOOD COUNT 3.4 K/mm3 (4.0-10.8)
[2019-01-29 08:56] LABS: ALBUMIN 3.5 g/dl (3.4-5.0); BILIRUBIN,TOTAL 0.6 mg/dl (0.2-1); CALCIUM 8.8 mg/dl (8.5-10); CREATININE 0.4 mg/dl (0.55-1.3); MAGNESIUM 1.9 mg/dL (1.8-2.4); POTASSIUM 3.9 mmol/L (3.5-5.1); TOT PROT 5.9 g/dl (6.4-8.2)
[2019-01-29] MEDS ORDERED: PROPOFOL 20 ML ONE (09:51)
[2019-01-29] MEDS ORDERED: VALSARTAN 160 MG TABLET (UD) PO SCH (10:00)
[2019-01-29] MEDS: amLODIPine BESYLATE 5 MG TABLET (FP) PO SCH (10:00)
[2019-01-29] MEDS ORDERED: PATIENT'S OWN MEDICATION (NON-FORMULARY) (Telmisartan [Telmisartan] 80 MG) PO SCH (10:00)
[2019-01-29] MEDS ORDERED: metFORMIN HCL 500 MG TABLET (FP) PO SCH (10:00)
--- NOTE | 2019-01-29 10:16 | PN ---
Progress Note (short form) - Note Progress Note: Colonoscopy performed with report in chart. Findings notable for few right sided diverticuli and an inflammed external hemorrhoid (less likely lesion) - likely source of recent bleeding Rec Advance diet Surgery consult Sitz bath tid, Colace tid, prn Anusol HC cream Discharge home if stable
[2019-01-29 14:16] VITALS: BP 147/65; PULSE 77; TEMP 98.4
--- NOTE | 2019-01-29 15:31 | EKG ---
Test Reason : Blood Pressure : / mmHG Vent. Rate : 070 BPM Atrial Rate : 070 BPM P-R Int : 184 ms QRS Dur : 084 ms QT Int : 414 ms P-R-T Axes : 035 -46 225 degrees QTc Int : 447 ms NORMAL SINUS RHYTHM LEFT AXIS DEVIATION ANTERIOR INFARCT (CITED ON OR BEFORE 04-MAR-2017) T WAVE ABNORMALITY, CONSIDER LATERAL ISCHEMIA ABNORMAL ECG WHEN COMPARED WITH ECG OF 28-JAN-2019 08:47, QUESTIONABLE CHANGE IN INITIAL FORCES OF ANTEROSEPTAL LEADS Confirmed by TEAGAN DRAKE MD ([id number]) on 01/29/2019 3:31:10 PM Referred By: DAVID QUACH Confirmed By:TEAGAN DRAKE MD
--- NOTE | 2019-01-29 16:08 | DS ---
Physical Exam: SUBJECTIVE: Patient seen and examined following colonoscopy. Denies pain. Feels well. Tolerating clear liquids. Daughter present. OBJECTIVE: Vital Signs Period Temp Pulse Resp BP Sys/Sims Pulse Ox Last 24 Hr 97.6 F-98.4 F 58-77 16-20 114-150/56-65 97-98 PHYSICAL EXAM GENERAL: The patient is awake, alert, and fully oriented, in no acute distress. LUNGS: Breath sounds equal, clear to auscultation bilaterally, no wheezes, no crackles, no accessory muscle use. HEART: Regular rate and rhythm, S1, S2 without murmur, rub or gallop. ABDOMEN: Soft, nontender, nondistended, normoactive bowel sounds EXTREMITIES: 2+ pulses, warm, well-perfused, no edema. NEUROLOGICAL: Cranial nerves II through XII grossly intact. Normal speech Laboratory Results - last 24 hr 01/28/19 01/29/19 01/29/19 21:54 06:27 07:09 WBC 3.4 L RBC 3.73 Hgb 11.4 Hct 34.3 MCV 92.0 MCH 30.6 MCHC 33.3 RDW 13.1 Plt Count 292 MPV 7.2 L Absolute Neuts (auto) 2.0 Neutrophils % 56.1 Lymphocytes % 29.3 Monocytes % 9.6 Eosinophils % 3.6 Basophils % 1.4 Sodium Potassium Chloride Carbon Dioxide Anion Gap BUN Creatinine Est GFR (CKD-EPI)AfAm Est GFR (CKD-EPI)NonAf POC Glucometer 106 105 Random Glucose Calcium Magnesium Total Bilirubin AST ALT Alkaline Phosphatase Total Protein Albumin 01/29/19 07:09 WBC RBC Hgb Hct MCV MCH MCHC RDW Plt Count MPV Absolute Neuts (auto) Neutrophils % Lymphocytes % Monocytes % Eosinophils % Basophils % Sodium 138 Potassium 3.9 Chloride 108 H Carbon Dioxide 27 Anion Gap 3 L BUN 5.0 L Creatinine 0.4 L Est GFR (CKD-EPI)AfAm 113.21 Est GFR (CKD-EPI)NonAf 97.68 POC Glucometer Random Glucose 111 H Calcium 8.8 Magnesium 1.9 Total Bilirubin 0.6 AST 14 L ALT 15 Alkaline Phosphatase 57 Total Protein 5.9 L Albumin 3.5 HOSPITAL COURSE: Date of Admission:01/28/19 Date of Discharge: 01/29/19 83 year-old female with a PMH significant for HTN, HLD, Type II NIDDM, peripheral arterial disease s/p multiple bilateral femoral angioplasty procedures with stents. On triple anti-platelet therapy. Admitted for BRBPR. Lower GI bleed --01/29 colonoscopy: few right-sided diverticuli and an inflamed external hemorrhoid is likely source of bleeding --Hgb stable, no further bleeding episodes during hospital stay --ASA, Plavix, Pletil were held prior to procedure, resumed on discharge --follow up with surgeon, Dr. Reed, appt next week Peripheral arterial disease s/p b/l angioplasties and stents --follows regularly with Dr. Dao --resume anti-platelet therapy on discharge Hypertension --BP stable --continued amlodipine, Toprol XL, telmisartan Hyperlipidemia --continued atorvastatin Type II NIDDM --continued metformin --Novolog sliding scale coverage Severe malnutrition --thin, frail, cachectic --BMI 16 --unintentional weight loss of 7 pounds, decreased appetite Minutes to complete discharge: 35 Discharge Summary Reason For Visit: RECTAL HEMORRHAGE Condition: Improved - Instructions Diet, Activity, Other Instructions: You had a colonoscopy today. You should advance your diet slowly and drink plenty of fluids. You have a large hemorrhoid that requires removal. You have an appointment with Dr. Reed, a surgeon, 02/05 at 2:00 p.m. Return to the emergency department for any new or worsening symptoms. Referrals: Kartik Reed MD [Staff Physician] - 02/05/19 2:00 pm Disposition: HOME - Home Medications Comprehensive Discharge Medication List: Ambulatory Orders Aspirin 81 mg PO DAILY 05/21/14 metFORMIN HCL [Metformin HCl] 500 mg PO DAILY 11/03/16 Clopidogrel Bisulfate [Plavix -] 75 mg PO DAILY 03/07/17 Metoprolol Succinate 50 mg PO DAILY 12/24/17 Amlodipine Besylate [Norvasc -] 5 mg PO BID 12/12/18 Atorvastatin Ca [Lipitor] 80 mg PO HS 12/12/18 Telmisartan 80 mg PO DAILY 12/12/18 Cilostazol [Pletal -] 25 mg PO BID 01/28/19 This patient is new to me today: No Emergency Visit: Yes ED Registration Date: 01/28/19 Care time: The patient presented to the Emergency Department on the above date and was hospitalized for further evaluation of their emergent condition. Critical Care patient: No - Discharge Referral Referred to [facility] No
== END 2019-01-29 15:47 | disposition home or self-care (01) | DRG 393 ==
LOC: FER 06:42 → FM/S 08:30
PROVIDERS: ADMIT Internal Medicine; ATTEND Nurse Practitioner Acute Care
PROC: 0DJ08ZZ Inspection of Upper Intestinal Tract, Via Natural or Artificial Opening Endoscopic (ICD-10-PCS; principal; 2019-01-29 09:56)
DX: K64.9 Unspecified hemorrhoids (principal); E43 Unspecified severe protein-calorie malnutrition; R71.0 Precipitous drop in hematocrit; R64 Cachexia; Z68.1 Body mass index [BMI] 19.9 or less, adult; K92.2 Gastrointestinal hemorrhage, unspecified; I10 Essential (primary) hypertension; E78.5 Hyperlipidemia, unspecified; I73.9 Peripheral vascular disease, unspecified; Z79.84 Long term (current) use of oral hypoglycemic drugs; I25.2 Old myocardial infarction; E11.9 Type 2 diabetes mellitus without complications
CPT/HCPCS: 36415; 71045-TC-FY; 80053; 82272; 82962; 83735; 85025; 85610; 85730; 86900; 93005; 99285-25; J7030

== ENCOUNTER 2021-02-18 19:08 | Emergency (ER) | payer OTHER ==
[2021-02-18 19:23] VITALS: BP 147/64; PULSE 64; TEMP 99.3; BMI 17.3
== END 2021-02-18 21:01 | disposition home or self-care (01) ==
LOC: FER 19:08
DX: S00.03XA Contusion of scalp, initial encounter (principal); W01.0XXA Fall on same level from slipping, tripping and stumbling without subsequent striking against object, initial encounter
CPT/HCPCS: 70450-TC; 72125-TC; 99284-25

== ENCOUNTER 2021-05-17 06:26 | Day surgery (SDC) | payer OTHER ==
[2021-05-15 13:21] VITALS: BMI 17.9
[2021-05-17] MEDS: CIPROFLOXACIN 0.3% EYE DROPS 5 ML BOTTLE ONE ×3 (06:55→07:05)
[2021-05-17] MEDS: TROPICAMIDE 1% OPHTH SOLN 15 ML BOTTLE ONE ×3 (06:55→07:05)
[2021-05-17] MEDS: PHENYLEPHRINE 2.5% OPHTH SOLN 15 ML BOTTLE ONE ×3 (06:55→07:05)
[2021-05-17] MEDS: CYCLOPENTOLATE 2% OPHTH SOLN 2 ML BOTTLE ONE ×3 (06:55→07:05)
[2021-05-17] MEDS ORDERED: LIDOCAINE 1% P/F 10 MG/ML VIAL ONE (07:05)
[2021-05-17] MEDS ORDERED: EPINEPHrine/PF 1 MG/1 ML (1:1,000) AMPULE ONE (07:05)
[2021-05-17] MEDS ORDERED: CARBACHOL 0.01% INTRA-OCULAR 1.5 ML VIAL ONE (07:06)
[2021-05-17] MEDS ORDERED: TETRACAINE 0.5% OPHTH SOLN 2 ML BOTTLE ONE (07:06)
[2021-05-17] MEDS ORDERED: NEO/POLYMYX B SULF/DEXAMETH OPHTHALMIC 5ML BOTTLE ONE (07:06)
[2021-05-17] MEDS ORDERED: BSS (NA/CA/MG/K) BALANCED SALT SOLUTION OPHTH SOLN 15 ML BOTTLE ONE (07:06)
[2021-05-17] MEDS ORDERED: MIDAZOLAM HCL 2 MG/2 ML SINGLE DOSE VIAL ONE (08:08)
[2021-05-17 08:41] VITALS: TEMP 98.6
[2021-05-17 09:19] VITALS: BP 133/54; PULSE 72
== END 2021-05-17 09:20 | disposition home or self-care (01) ==
LOC: FASU 06:26
PROVIDERS: ATTEND Ophthalmology
PROC: 08RK3JZ Replacement of Left Lens with Synthetic Substitute, Percutaneous Approach (ICD-10-PCS; principal; 2021-05-17 08:10)
DX: H26.8 Other specified cataract (principal)
CPT/HCPCS: 82962

== ENCOUNTER 2021-10-21 16:28 | Emergency (ER) | payer OTHER ==
[2021-10-21 17:19] VITALS: BP 142/72; PULSE 65; TEMP 99.2; BMI 22.9
== END 2021-10-21 17:01 | disposition home or self-care (01) ==
LOC: FER 16:28
DX: B02.9 Zoster without complications (principal)
CPT/HCPCS: 99281-25